=== PATIENT | male | born 1950 | race Caucasian/White ===

== ENCOUNTER 2018-05-16 17:41 | Observation (INO) ==
[2018-05-16] MEDS ORDERED: Sod Chloride 0.9% Inj 1,000 ML IV.SIG ONE (22:32)
[2018-05-16] MEDS ORDERED: Morphine Inj 4 MG/ML Vial IV.PUSH ONE (22:32)
--- NOTE | 2018-05-16 22:36 | ED ---
HPI General Chief Complaint: Nausea/Vomiting/Diarrhea Stated Complaint: vomitting Time Seen by Provider: 05/16/18 22:41 Source: patient, family and RN notes reviewed Mode of arrival: ambulatory Limitations: no limitations History of Present Illness HPI narrative: 67-year-old male presents to the emergency department for evaluation nausea, vomiting, abdominal pain. Patient states the abdominal pain started 4 days ago. He states it started as cramping in the right upper quadrant and has now painful throughout the abdomen. Family at bedside states he has been vomiting continuously throughout the day. He has vomited 8 times in the waiting room. He denies any fevers. No chest pain or shortness of breath. He has history of lithotripsy in the past. His family states that he has had this several times in the past, but has never been diagnosed with any issues. No abdominal surgeries. His history of diabetes and hypertension. No other symptoms or complaints. Moderate severity. MD complaint: abdominal pain Onset (ago): day(s) (4) Pain Consistency: constant Location: diffuse Severity: moderate Severity scale (1-10): 8 Quality: cramping Radiation: none Migration to: no migration Relieving factors: nothing Exacerbating factors: vomiting Associated symptoms: nausea and vomiting Related Data Home Medications Medication Instructions Recorded Confirmed lisinopril 20 mg PO DAILY 05/16/18 05/16/18 metformin [Glucophage] 500 mg PO BID 05/16/18 05/16/18 rosuvastatin [Crestor] 20 mg PO DAILY 05/16/18 05/16/18 Allergies Allergy/AdvReac Type Severity Reaction Status Date / Time No Known Allergies Allergy Unverified 05/16/18 22:32 Review of Systems ROS: all other systems reviewed are negative PMFSH Medical History Medical History Diabetes (Acute) Hyperlipidemia (Acute) Hypertension (Acute) Family History Family History Other Family history normal Social History Social History Substance History: No History of Abuse Second Hand Smoke Exposure: Yes Smoking Status: Light tobacco smoker Tobacco Type: Cigarettes How Often Do You Have a Drink Containing Alcohol: Never Recent Travel in [facility] within the Last 8 Weeks: No Recent Out of Country Travel within the Last 8 Weeks: No Exam Narrative Exam Narrative: GENERAL: Well-nourished, well-developed male patient, afebrile SKIN: Focused skin assessment warm/dry. HEAD: Normocephalic. Atraumatic EYES: No scleral icterus. No injection or drainage. NECK: Supple, trachea midline. No JVD or lymphadenopathy. CARDIOVASCULAR: Regular rate and rhythm without murmurs, gallops, or rubs. RESPIRATORY: Breath sounds equal bilaterally. No accessory muscle use. Lung sounds are clear to auscultation GASTROINTESTINAL: Abdomen soft and nondistended. He has diffuse tenderness to palpation throughout. MUSCULOSKELETAL: No cyanosis, or edema. BACK: Nontender without obvious deformity. No CVA tenderness. Course Initial Documented Vital Signs Temperature 98.5 F 05/16/18 17:51 Pulse Rate 92 H 05/16/18 17:51 Respiratory Rate 18 05/16/18 17:51 Blood Pressure 124/60 05/16/18 17:51 Pulse Oximetry 96 05/16/18 17:51 Last Documented Vital Signs Temperature 97.7 F 05/18/18 03:51 Pulse Rate 46 L 05/18/18 03:51 Respiratory Rate 18 05/18/18 03:51 Blood Pressure 111/61 05/18/18 03:51 Pulse Oximetry 92 L 05/18/18 03:51 Medical Decision Making [facility] Narrative Medical decision making narrative: 67 year old male presents to the emergency department for vomiting and diffuse abdominal pain. IV access is obtained. EKG , CBC, CMP, Lipase, PTT, PT/INR, UA are ordered and pending. Patient is given NS 1 L IV bolus, Zofran 4 mg IV, morphine 4 mg IV. My attending physician, Dr. Mccord, will resume care and disposition of patient. Medical Screen Exam Complete: Yes Emergency Medical Condition: Yes Differential Diagnosis Differential Diagnosis: pancreatitis vs. cholecysitis vs. diverticultis vs. UTI vs. pyelonephritis vs. nephrolitihiasis Lab Data Lab results reviewed: Yes I reviewed the patient's lab results. Result diagrams: 05/18/18 06:10 05/16/18 22:35 Lab Results 05/16/18 05/16/18 05/16/18 Range/Units 22:35 22:35 22:35 WBC 14.6 H (4.0-11.0) th/mm3 RBC 5.28 (4.50-5.90) mil/mm3 Hgb 15.9 (13.0-17.0) gm/dL Hct 47.4 (39.0-51.0) % MCV 89.7 (80.0-100.0) fL MCH 30.1 (27.0-34.0) pg MCHC 33.6 (32.0-36.0) % RDW 13.6 (11.6-17.2) % Plt Count 409 (150-450) th/mm3 MPV 8.5 (7.0-11.0) fL Neut % (Auto) 78.0 H (16.0-70.0) % Lymph % (Auto) 14.3 (9.0-44.0) % [place] % (Auto) 6.5 (0.0-8.0) % Eos % (Auto) 0.5 (0.0-4.0) % Baso % (Auto) 0.7 (0.0-2.0) % Neut # (Auto) 11.4 H (1.8-7.7) th/mm3 Lymph # (Auto) 2.1 (1.0-4.8) th/mm3 [place] # (Auto) 0.9 (0.0-0.9) th/mm3 Eos # (Auto) 0.1 (0.0-0.4) th/mm3 Baso # (Auto) 0.1 (0.0-0.2) th/mm3 WBC Differential . Differential Comment Auto diff final PT 11.3 (9.8-11.6) sec INR 1.1 Ratio APTT 28.9 (24.3-30.1) sec Sodium 142 (136-145) meq/L Potassium 3.6 (3.5-5.1) meq/L Chloride 99 (98-107) meq/L Carbon Dioxide 33.6 H (21.0-32.0) meq/L Anion Gap 9 (5-15) meq/L BUN 19 H (7-18) mg/dL Creatinine 1.33 H (0.60-1.30) mg/dL Estimated GFR 54 L (>89) mL/min POC Glucose (68-110) mg/dl Random Glucose 139 H (74-106) mg/dL Calcium 11.1 H (8.5-10.1) mg/dL Total Bilirubin 0.6 (0.2-1.0) mg/dL AST 17 (15-37) U/L ALT 20 (12-78) U/L Alkaline Phosphatase 73 (45-117) U/L Total Protein 8.8 H (6.4-8.2) g/dL Albumin 4.6 (3.4-5.0) g/dL Lipase 206 (73-393) U/L Urine Color (Yellw/Straw) Urine Clarity (Clear) Urine pH (5.0-8.5) Ur Specific [place] (1.002-1.035) Urine Protein (Neg-Trace) mg/dL Urine Glucose (UA) (Negative) mg/dL Urine Ketones (Negative) mg/dL Urine Occult Blood (Negative) Urine Nitrate (Negative) Urine Bilirubin (Negative) Urine Urobilinogen (Less than 2) mg/dL Ur Leukocyte Esterase (Negative) Urine RBC (0-3) /hpf Urine WBC (0-5) /hpf Amorphous Sediment (None) /hpf Urine Bacteria (None) /hpf Urine Mucus (Occasional) /lpf Micro UA Comment Ur Microscopic Review Urine Culture Comments Blood Type Blood Type Recheck Antibody Screen MTS Gel Crossmatch 05/17/18 05/17/18 05/17/18 Range/Units 09:22 09:25 13:29 WBC (4.0-11.0) th/mm3 RBC (4.50-5.90) mil/mm3 Hgb (13.0-17.0) gm/dL Hct (39.0-51.0) % MCV (80.0-100.0) fL MCH (27.0-34.0) pg MCHC (32.0-36.0) % RDW (11.6-17.2) % Plt Count (150-450) th/mm3 MPV (7.0-11.0) fL Neut % (Auto) (16.0-70.0) % Lymph % (Auto) (9.0-44.0) % [place] % (Auto) (0.0-8.0) % Eos % (Auto) (0.0-4.0) % Baso % (Auto) (0.0-2.0) % Neut # (Auto) (1.8-7.7) th/mm3 Lymph # (Auto) (1.0-4.8) th/mm3 [place] # (Auto) (0.0-0.9) th/mm3 Eos # (Auto) (0.0-0.4) th/mm3 Baso # (Auto) (0.0-0.2) th/mm3 WBC Differential Differential Comment PT (9.8-11.6) sec INR Ratio APTT (24.3-30.1) sec Sodium (136-145) meq/L Potassium (3.5-5.1) meq/L Chloride (98-107) meq/L Carbon Dioxide (21.0-32.0) meq/L Anion Gap (5-15) meq/L BUN (7-18) mg/dL Creatinine (0.60-1.30) mg/dL Estimated GFR (>89) mL/min POC Glucose 141 H 110 (68-110) mg/dl Random Glucose (74-106) mg/dL Calcium (8.5-10.1) mg/dL Total Bilirubin (0.2-1.0) mg/dL AST (15-37) U/L ALT (12-78) U/L Alkaline Phosphatase (45-117) U/L Total Protein (6.4-8.2) g/dL Albumin (3.4-5.0) g/dL Lipase (73-393) U/L Urine Color Yellow (Yellw/Straw) Urine Clarity Hazy H (Clear) Urine pH 7.0 (5.0-8.5) Ur Specific [place] 1.016 (1.002-1.035) Urine Protein Negative (Neg-Trace) mg/dL Urine Glucose (UA) Negative (Negative) mg/dL Urine Ketones Negative (Negative) mg/dL Urine Occult Blood Negative (Negative) Urine Nitrate Negative (Negative) Urine Bilirubin Negative (Negative) Urine Urobilinogen Less than 2 (Less than 2) mg/dL Ur Leukocyte Esterase Negative (Negative) Urine RBC 4 H (0-3) /hpf Urine WBC 5 (0-5) /hpf Amorphous Sediment Few H (None) /hpf Urine Bacteria Few H (None) /hpf Urine Mucus Few H (Occasional) /lpf Micro UA Comment Culture not ind Ur Microscopic Review Not Reportable Urine Culture Comments Culture not ind Blood Type Blood Type Recheck Antibody Screen MTS Gel Crossmatch 05/17/18 05/17/18 05/17/18 Range/Units 18:04 18:12 18:12 WBC 14.4 H (4.0-11.0) th/mm3 RBC 4.15 L (4.50-5.90) mil/mm3 Hgb 12.5 L D (13.0-17.0) gm/dL Hct 37.2 L (39.0-51.0) % MCV 89.7 (80.0-100.0) fL MCH 30.0 (27.0-34.0) pg MCHC 33.5 (32.0-36.0) % RDW 13.3 (11.6-17.2) % Plt Count 304 (150-450) th/mm3 MPV 8.5 (7.0-11.0) fL Neut % (Auto) 77.2 H (16.0-70.0) % Lymph % (Auto) 15.1 (9.0-44.0) % [place] % (Auto) 7.0 (0.0-8.0) % Eos % (Auto) 0.4 (0.0-4.0) % Baso % (Auto) 0.3 (0.0-2.0) % Neut # (Auto) 11.2 H (1.8-7.7) th/mm3 Lymph # (Auto) 2.2 (1.0-4.8) th/mm3 [place] # (Auto) 1.0 H (0.0-0.9) th/mm3 Eos # (Auto) 0.1 (0.0-0.4) th/mm3 Baso # (Auto) 0.0 (0.0-0.2) th/mm3 WBC Differential . Differential Comment Auto diff final PT (9.8-11.6) sec INR Ratio APTT (24.3-30.1) sec Sodium (136-145) meq/L Potassium (3.5-5.1) meq/L Chloride (98-107) meq/L Carbon Dioxide (21.0-32.0) meq/L Anion Gap (5-15) meq/L BUN (7-18) mg/dL Creatinine (0.60-1.30) mg/dL Estimated GFR (>89) mL/min POC Glucose 86 (68-110) mg/dl Random Glucose (74-106) mg/dL Calcium (8.5-10.1) mg/dL Total Bilirubin (0.2-1.0) mg/dL AST (15-37) U/L ALT (12-78) U/L Alkaline Phosphatase (45-117) U/L Total Protein (6.4-8.2) g/dL Albumin (3.4-5.0) g/dL Lipase (73-393) U/L Urine Color (Yellw/Straw) Urine Clarity (Clear) Urine pH (5.0-8.5) Ur Specific [place] (1.002-1.035) Urine Protein (Neg-Trace) mg/dL Urine Glucose (UA) (Negative) mg/dL Urine Ketones (Negative) mg/dL Urine Occult Blood (Negative) Urine Nitrate (Negative) Urine Bilirubin (Negative) Urine Urobilinogen (Less than 2) mg/dL Ur Leukocyte Esterase (Negative) Urine RBC (0-3) /hpf Urine WBC (0-5) /hpf Amorphous Sediment (None) /hpf Urine Bacteria (None) /hpf Urine Mucus (Occasional) /lpf Micro UA Comment Ur Microscopic Review Urine Culture Comments Blood Type A Positive Blood Type Recheck Required Antibody Screen Negative MTS Gel Crossmatch See Detail 05/17/18 05/18/18 05/18/18 Range/Units 19:43 03:06 06:10 WBC 9.7 (4.0-11.0) th/mm3 RBC 3.91 L (4.50-5.90) mil/mm3 Hgb 12.0 L (13.0-17.0) gm/dL Hct 35.8 L (39.0-51.0) % MCV 91.5 (80.0-100.0) fL MCH 30.8 (27.0-34.0) pg MCHC 33.6 (32.0-36.0) % RDW 13.7 (11.6-17.2) % Plt Count 247 (150-450) th/mm3 MPV 8.1 (7.0-11.0) fL Neut % (Auto) 65.2 (16.0-70.0) % Lymph % (Auto) 24.1 (9.0-44.0) % [place] % (Auto) 7.0 (0.0-8.0) % Eos % (Auto) 3.0 (0.0-4.0) % Baso % (Auto) 0.7 (0.0-2.0) % Neut # (Auto) 6.3 (1.8-7.7) th/mm3 Lymph # (Auto) 2.3 (1.0-4.8) th/mm3 [place] # (Auto) 0.7 (0.0-0.9) th/mm3 Eos # (Auto) 0.3 (0.0-0.4) th/mm3 Baso # (Auto) 0.1 (0.0-0.2) th/mm3 WBC Differential . Differential Comment Auto diff final PT (9.8-11.6) sec INR Ratio APTT (24.3-30.1) sec Sodium (136-145) meq/L Potassium (3.5-5.1) meq/L Chloride (98-107) meq/L Carbon Dioxide (21.0-32.0) meq/L Anion Gap (5-15) meq/L BUN (7-18) mg/dL Creatinine (0.60-1.30) mg/dL Estimated GFR (>89) mL/min POC Glucose 84 93 (68-110) mg/dl Random Glucose (74-106) mg/dL Calcium (8.5-10.1) mg/dL Total Bilirubin (0.2-1.0) mg/dL AST (15-37) U/L ALT (12-78) U/L Alkaline Phosphatase (45-117) U/L Total Protein (6.4-8.2) g/dL Albumin (3.4-5.0) g/dL Lipase (73-393) U/L Urine Color (Yellw/Straw) Urine Clarity (Clear) Urine pH (5.0-8.5) Ur Specific [place] (1.002-1.035) Urine Protein (Neg-Trace) mg/dL Urine Glucose (UA) (Negative) mg/dL Urine Ketones (Negative) mg/dL Urine Occult Blood (Negative) Urine Nitrate (Negative) Urine Bilirubin (Negative) Urine Urobilinogen (Less than 2) mg/dL Ur Leukocyte Esterase (Negative) Urine RBC (0-3) /hpf Urine WBC (0-5) /hpf Amorphous Sediment (None) /hpf Urine Bacteria (None) /hpf Urine Mucus (Occasional) /lpf Micro UA Comment Ur Microscopic Review Urine Culture Comments Blood Type Blood Type Recheck Antibody Screen MTS Gel Crossmatch Imaging Data Radiologist's impression: Abdomen/Pelvis CT 05/16/18 22:32 CONCLUSION: 1. Inflammatory stranding around the first portion of the duodenum which may represent a nonspecific duodenitis. This may be causing partial gastric outlet obstruction as the stomach is distended and fluid-filled. 2. Appendix is identified and is radiographically normal. 3. Granulomatous type calcifications in the spleen and liver. 4. Nonobstructing calculi in the left renal collecting system. Discharge Plan Discharge Disposition Patient Disposition: 30 Still Patient Physicians Team ED Provider: Fausto Mccord ED Midlevel Provider: Mady Guthrie Attending Provider: Luis Armando Hankins Other Providers: Ryan Palomares Jonathan Discharge Interventions Interventions: ED Discharge Assessment Last Done: 05/17/18 01:55 Status ED Status: Left Department Discharge Information Discharge Date/Time: 05/17/18 01:55
[2018-05-16 23:26] LABS: Baso # (Auto) 0.1 th/mm3 (0.0-0.2); Baso % (Auto) 0.7 % (0.0-2.0); Eos # (Auto) 0.1 th/mm3 (0.0-0.4); Eos % (Auto) 0.5 % (0.0-4.0); Hematocrit 47.4 % (39.0-51.0); Hemoglobin 15.9 gm/dL (13.0-17.0); Lymph # (Auto) 2.1 th/mm3 (1.0-4.8); Lymph % (Auto) 14.3 % (9.0-44.0); Mean Corpuscular HGB Conc 33.6 % (32.0-36.0); Mean Corpuscular Hemoglobin 30.1 pg (27.0-34.0); Mean Corpuscular Volume 89.7 fL (80.0-100.0); Mean Platelet Volume 8.5 fL (7.0-11.0); Mono # (Auto) 0.9 th/mm3 (0.0-0.9); Mono % (Auto) 6.5 % (0.0-8.0); Neut # (Auto) 11.4 th/mm3 (1.8-7.7); Platelet Count 409 th/mm3 (150-450); Red Blood Count 5.28 mil/mm3 (4.50-5.90); Red Cell Distribution Width 13.6 % (11.6-17.2); White Blood Count 14.6 th/mm3 (4.0-11.0)
[2018-05-16 23:41] LABS: Activated Partial Thrombo Time 28.9 sec (24.3-30.1); INR 1.1 Ratio; Prothrombin Time 11.3 sec (9.8-11.6)
[2018-05-16 23:44] LABS: Albumin 4.6 g/dL (3.4-5.0); Anion Gap 9 meq/L (5-15); Aspartate Aminotransferase 17 U/L (15-37); Blood Urea Nitrogen 19 mg/dL (7-18); Calcium 11.1 mg/dL (8.5-10.1); Carbon Dioxide 33.6 meq/L (21.0-32.0); Chloride 99 meq/L (98-107); Glomerular Filtration Rate 54 mL/min (>89); Glucose,Random 139 mg/dL (74-106); Lipase 206 U/L (73-393); Potassium 3.6 meq/L (3.5-5.1); Sodium 142 meq/L (136-145)
[2018-05-16 23:48] LABS: Alanine Aminotransferase 20 U/L (12-78); Alkaline Phosphatase 73 U/L (45-117); Total Protein 8.8 g/dL (6.4-8.2)
--- NOTE | 2018-05-17 00:07 | CT ---
EXAM DATE: 05/16/2018 11:43 PM EDT AGE/SEX: 67 years / Male INDICATIONS: Diffuse abdominal pain, nausea and vomiting. CLINICAL DATA: This is the patient's initial encounter. Patient reports that signs and symptoms have been present for 1 day and indicates a pain score of 6/10. MEDICAL/SURGICAL HISTORY: Diabetes. Hypertension. Renal calculi. None. RADIATION DOSE: 7.04 CTDI (mGy) COMPARISON: No prior exams available for comparison. TECHNIQUE: Multiple contiguous axial images were obtained through the abdomen. Images were obtained using multiple row detector helical technique. Using automated exposure control and adjustment of the mA and/or kV according to patient size, radiation dose was kept as low as reasonably achievable to o btain optimal diagnostic quality images. DICOM format image data is available electronically for rev iew and comparison. FINDINGS: Lower Lungs: Bibasilar atelectatic changes. Left lingular scarring versus atelectasis. No confluent i nfiltrate Liver: A few granulomatous type calcifications without space-occupying lesion. There is no dilation o f the biliary tree. Spleen: Scattered granulomatous type calcifications in the spleen. Pancreas: Unremarkable without mass or calcification. Kidneys: Multiple nonobstructing calcifications are seen in the midpole collecting system of the lef t kidney, the largest measuring approximately 6.2 mm in diameter Adrenal Glands: Unremarkable. Aorta: The aorta and proximal iliac vessels are grossly unremarkable without aneurysmal dilation. Bowel/Mesentery: The appendix is identified and is radiographically normal. However, there is some i nflammatory stranding around the first portion of the duodenum. In addition, the stomach is somewhat distended and fluid-filled. Abdominal Wall: Intact. Retroperitoneum: No evidence of adenopathy in the retrocrural, para-aortic, or deep pelvic regions. Bladder: Contours are smooth. Reproductive Organs: No abnormal masses or calcifications seen. Inguinal: Small bilateral inguinal hernias which only contains fat. These measure between 1.5 and 1. 9 cm Bony Structures: Bridging anterior osteophytes in the SI joints bilaterally. Otherwise intact CONCLUSION: 1. Inflammatory stranding around the first portion of the duodenum which may represent a nonspecific duodenitis. This may be causing partial gastric outlet obstruction as the stomach is distended and f luid-filled. 2. Appendix is identified and is radiographically normal. 3. Granulomatous type calcifications in the spleen and liver. 4. Nonobstructing calculi in the left renal collecting system. Electronically signed by: Alphonso Rangel MD 05/17/2018 12:06 AM EDT
[2018-05-17] MEDS ORDERED: Sod Chloride 0.9% Inj 1,000 ML IV.SIG ONE (00:16)
[2018-05-17] MEDS ORDERED: Piperacil/Tazo 3.375 GM Premix 50 ML IV.SIG ONE (00:16)
[2018-05-17] MEDS ORDERED: Bisacodyl 10 MG Supp RECTAL PRN (03:09)
[2018-05-17] MEDS ORDERED: Dextrose 50% in Water 50 ML Vial IV.PUSH PRN (03:10)
[2018-05-17] MEDS: Sod Chloride 0.9% Inj 1,000 ML IV.CONT SCH ×3 (03:51→18:18)
[2018-05-17] MEDS: Morphine Inj 4 MG/ML Vial IV.PUSH PRN ×4 (03:52→23:59)
--- NOTE | 2018-05-17 03:54 | P.HP ---
History of Present Illness Service: [facility] Primary Care Physician: Cb Anand History of Present Illness: 67-year-old male with a past medical history significant for hypertension, hyperlipidemia and diabetes mellitus presents the emergency department for evaluation of abdominal pain. Patient reports he has had a crampy abdominal pain for approximately 4 weeks. He is originally from [place] and has seen his primary care provider about this issue. He reports that all of his blood work was normal but no imaging was done. He states for the last week his abdominal pain has worsened. He awoke this morning with severe nausea followed by approximately 20 episodes of emesis. He denies any diarrhea. No fevers or chills. No chest pain or shortness of breath. No lateralizing signs/symptoms. Review of Systems All other systems reviewed negative except as stated in HPI [facility] - History History Provided By: Family Member - Medical / Surgical Hx Neg / Unobtainable Surgical History: No Previous Surgery - Medical History Medical History: Medical History (Last Updated 05/17/18 @ 03:42 by Berenice Ness MD) Diabetes Hyperlipidemia Hypertension - Family History Family History: Family History (Last Updated 05/17/18 @ 03:43 by Berenice Ness MD) Other Family history normal - Tobacco History Second Hand Smoke Exposure: Yes Tobacco Use In Past 30 Days: Yes Smoking Status: Light tobacco smoker Tobacco Type: Cigarettes - Alcohol History How Often Do You Have a Drink Containing Alcohol: Never - Substance Use History Substance History: No History of Abuse - Travel History Recent Travel in the [facility] Within the Last 8 Weeks: No Recent Travel Out of the Country Within the Last 8 Weeks: No - Immunization History Tetanus Immunization: Unsure Hx Influenza Vaccine This Season: No Medications and Allergies Active Medications: Active Medications Al Hydroxide/Mg Hydroxide (Milk Of Elbert Liq) 30 ml PO Q12H PRN PRN Reason: Mild Constipation Atorvastatin Calcium (Lipitor) 40 mg PO DAILY KOREY Bisacodyl (Dulcolax Supp) 10 mg RECTAL DAILY PRN PRN Reason: SEVERE CONSITIPATION Dextrose (D50w Vial) 50 ml IV.PUSH UNSCH PRN PRN Reason: PER HYPOGLYCEMIA PROTOCOL Glucagon (Glucagon Inj) 1 mg OTHER PRN PRN PRN Reason: for Hypoglycemia Protocol Heparin Sodium (Porcine) (Heparin Inj) 5,000 units SQ Q8H KOREY Sodium Chloride (Ns Inj) 1,000 mls @ 150 mls/hr IV.CONT .Q6H40M [facility] Insulin Aspart (Novolog Insulin Correctional Sugar Inj) 0 unit SQ ACHS AND 3AM KOREY; Protocol Lactulose (Lactulose Liq) 30 ml PO DAILY PRN PRN Reason: SEVERE CONSITIPATION Lisinopril (Prinivil) 20 mg PO DAILY [facility] Morphine Sulfate (Morphine Inj) 4 mg IV.PUSH Q4H PRN PRN Reason: pain 6-10 Ondansetron HCl (Zofran Inj) 4 mg IV.PUSH Q6H PRN PRN Reason: NAUSEA OR VOMITING Senna/Docusate Sodium (Nancy-Colace) 1 tab PO BID [facility] Sennosides (Senokot) 17.2 mg PO Q12H PRN PRN Reason: Moderate Constipation Sodium Chloride (Ns Flush) 2 ml IV.FLUSH BID [facility] Sodium Chloride (Ns Flush) 2 ml IV.FLUSH PRN PRN PRN Reason: FLUSH AFTER USING IV ACCESS Allergies Allergy/AdvReac Type Severity Reaction Status Date / Time No Known Allergies Allergy Unverified 05/16/18 22:32 Home Medications Medication Instructions Recorded Confirmed Type lisinopril 20 mg PO DAILY 05/16/18 05/16/18 History metformin [Glucophage] 500 mg PO BID 05/16/18 05/16/18 History rosuvastatin [Crestor] 20 mg PO DAILY 05/16/18 05/16/18 History Exam Vital signs: Vital Signs 05/16/18 17:51 05/16/18 22:32 05/17/18 01:44 Temperature 98.5 F Pulse Rate 92 H 53 L Respiratory Rate 18 16 Blood Pressure 124/60 118/67 Pulse Oximetry 96 98 98 05/17/18 03:09 Temperature 98.2 F Pulse Rate 57 L Respiratory Rate 22 Blood Pressure 115/55 L Pulse Oximetry 92 L Intake & Output 05/16/18 05/16/18 05/17/18 06:59 18:59 06:59 Intake Total 1000 / 1000 Balance 1000 / 1000 Weight 208.652 kg 72.8 kg Intake: IV 1000 / 1000 NS Inj 1,000 ML @ Wide Open IV. 1000 / 1000 SIG BOLUS ONE Rx#:[id number] Narrative: Gen.: No acute distress Head: Normocephalic. Atraumatic. EENT: Pupils equal round and reactive to light. Nose without drainage. Airway intact. Throat without injection. Cardiovascular: Regular rate and rhythm. No murmurs, rubs or gallops. Respiratory: Lungs clear to auscultation bilaterally. No wheezes or rhonchi. Abdomen: Soft, nontender, nondistended. No peritoneal signs. Musculoskeletal: No gross deformities. No edema. Skin: No obvious rashes or erythema. Neuro: Sensory and motor grossly intact. Cranial nerves II through XII grossly intact. Results - Labs CBC & Chem 7: 05/16/18 22:35 05/16/18 22:35 Labs: Laboratory Results - last 24 hr 05/16/18 05/16/18 05/16/18 22:35 22:35 22:35 WBC 14.6 H RBC 5.28 Hgb 15.9 Hct 47.4 MCV 89.7 MCH 30.1 MCHC 33.6 RDW 13.6 Plt Count 409 MPV 8.5 Neut % (Auto) 78.0 H Lymph % (Auto) 14.3 [place] % (Auto) 6.5 Eos % (Auto) 0.5 Baso % (Auto) 0.7 Neut # (Auto) 11.4 H Lymph # (Auto) 2.1 [place] # (Auto) 0.9 Eos # (Auto) 0.1 Baso # (Auto) 0.1 WBC Differential . Differential Comment Auto diff final PT 11.3 INR 1.1 APTT 28.9 Sodium 142 Potassium 3.6 Chloride 99 Carbon Dioxide 33.6 H Anion Gap 9 BUN 19 H Creatinine 1.33 H Estimated GFR 54 L Random Glucose 139 H Calcium 11.1 H Total Bilirubin 0.6 AST 17 ALT 20 Alkaline Phosphatase 73 Total Protein 8.8 H Albumin 4.6 Lipase 206 - Imaging Impressions Abdomen/Pelvis CT 05/16/18 22:32 CONCLUSION: 1. Inflammatory stranding around the first portion of the duodenum which may represent a nonspecific duodenitis. This may be causing partial gastric outlet obstruction as the stomach is distended and fluid-filled. 2. Appendix is identified and is radiographically normal. 3. Granulomatous type calcifications in the spleen and liver. 4. Nonobstructing calculi in the left renal collecting system. Caprini VTE Risk Assessment Caprini VTE Risk Assessment: Moderate/High Risk (score >= 2) Caprini Risk Assessment Model: Point Value = 1 Point Value = 2 Point Value = 3 Point Value = 5 Age 41-60 Minor surgery BMI > 25 kg/m2 Swollen legs Varicose veins or History of unexplained or recurrent spontaneous Oral contraceptives or hormone replacement Sepsis (< 1 month) Serious lung disease, including pneumonia (< 1 month) Abnormal pulmonary function Acute myocardial infarction Congestive heart failure (< 1 month) History of inflammatory bowel disease Medical patient at bed rest Age 61-74 Arthroscopic surgery Major open surgery (> 45 min) Laparoscopic surgery (> 45 min) Malignancy Confined to bed (> 72 hours) Immobilizing plaster cast Central venous access Age >= 75 History of VTE Family history of VTE Factor V Leiden Prothrombin [id number] Lupus anticoagulant Anticardiolipin antibodies Elevated serum homocysteine Heparin-induced thrombocytopenia Other congenital or acquired thrombophilia Stroke (< 1 month) Elective arthroplasty Hip, pelvis, or leg fracture Acute spinal cord injury (< 1 month) Prophylaxis Regimen: Total Risk Factor Score Risk Level Prophylaxis Regimen 0-1 Low Early ambulation 2 Moderate Order ONE of the following: *Sequential Compression Device (SCD) *Heparin 5000 units SQ BID 3-4 Higher Order ONE of the following medications: *Heparin 5000 units SQ TID *Enoxaparin/Lovenox 40 mg SQ daily (WT < 150 kg, CrCl > 30 mL/min) *Enoxaparin/Lovenox 30 mg SQ daily (WT < 150 kg, CrCl > 10-29 mL/min) *Enoxaparin/Lovenox 30 mg SQ BID (WT < 150 kg, CrCl > 30 mL/min) AND/OR *Sequential Compression Device (SCD) 5 or more Highest Order ONE of the following medications: *Heparin 5000 units SQ TID (Preferred with Epidurals) *Enoxaparin/Lovenox 40 mg SQ daily (WT < 150 kg, CrCl > 30 mL/min) *Enoxaparin/Lovenox 30 mg SQ daily (WT < 150 kg, CrCl > 10-29 mL/min) *Enoxaparin/Lovenox 30 mg SQ BID (WT < 150 kg, CrCl > 30 mL/min) AND *Sequential Compression Device (SCD) Assessment and Plan - Plan Assessment/plan: 1. Abdominal pain CT of the abdomen/pelvis significant for inflammatory stranding around the first portion of the duodenum, possibly duodenitis. There is a possible partial gastric outlet obstruction with a distended/fluid-filled stomach Bowel rest N.p.o. IV fluids Morphine for pain 2. Diabetes mellitus Holding home antihyperglycemic's Sliding-scale insulin Monitor blood glucose 3. Hypertension/hyperlipidemia Continue home medication FEN N.p.o. Electrolytes: Monitor and replete as needed NS at 1 50 cc/hour Heparin
[2018-05-17] MEDS ORDERED: Heparin - SQ 10,000 UNITS/ML Vial SQ SCH (06:00)
[2018-05-17] MEDS: Lisinopril 20 MG Tablet PO SCH (08:04)
[2018-05-17] MEDS: Senna/Docusate Sodium 8.6/50 MG Tablet PO SCH ×2 (08:05→20:35)
--- NOTE | 2018-05-17 09:46 | P.PN ---
Subjective Interval history: patient does not give good history, hard of hearin awake and alert, appears in no distress " I dont' know, I guess" inconsistent "still painful" , d/w staff nurse- had water and 30 mins after - vomited fluids states abdominal pain on and off for 1 year beside having hiccups- denies any reflux states usually consitpation- BM q 3-4 days main complain is having right upper quadrant pain- "it's there" Physical Exam Vital signs: Vital Signs 05/16/18 17:51 05/16/18 22:32 05/17/18 01:44 Temperature 98.5 F Pulse Rate 92 H 53 L Respiratory Rate 18 16 Blood Pressure 124/60 118/67 Pulse Oximetry 96 98 98 05/17/18 03:09 05/17/18 03:55 05/17/18 07:37 Temperature 98.2 F 98.1 F Pulse Rate 57 L 60 Respiratory Rate 22 16 16 Blood Pressure 115/55 L 163/72 H Pulse Oximetry 92 L 94 L Intake & Output 05/16/18 05/17/18 05/17/18 18:59 06:59 18:59 Intake Total 2049 Balance 2049 Weight 208.652 kg 72.8 kg Intake: IV 2049 Zosyn 3.375 GM Premix 50 ML @ 50 / 50 100 mls/hr IV.SIG ONCE ONE Rx#: [id number] NS Inj 1,000 ML @ Wide Open IV. 1999 SIG BOLUS ONE Rx#:[id number] Other: # Voids 0 Narrative: awake and alert, no acute distress anicteric no nuchal rigidity lungs- no rales regular rhythm abdomens- soft, + bowel sounds, no guarding or rigidity. + tenderness on deep palpation of right upper epigastric and midly tender epigastric area, no rebound extrmeities no edema Results - Labs CBC & Chem 7: 05/16/18 22:35 05/16/18 22:35 Laboratory Results - last 24 hr 05/16/18 05/16/18 05/16/18 22:35 22:35 22:35 WBC 14.6 H RBC 5.28 Hgb 15.9 Hct 47.4 MCV 89.7 MCH 30.1 MCHC 33.6 RDW 13.6 Plt Count 409 MPV 8.5 Neut % (Auto) 78.0 H Lymph % (Auto) 14.3 [place] % (Auto) 6.5 Eos % (Auto) 0.5 Baso % (Auto) 0.7 Neut # (Auto) 11.4 H Lymph # (Auto) 2.1 [place] # (Auto) 0.9 Eos # (Auto) 0.1 Baso # (Auto) 0.1 WBC Differential . Differential Comment Auto diff final PT 11.3 INR 1.1 APTT 28.9 Sodium 142 Potassium 3.6 Chloride 99 Carbon Dioxide 33.6 H Anion Gap 9 BUN 19 H Creatinine 1.33 H Estimated GFR 54 L POC Glucose Random Glucose 139 H Calcium 11.1 H Total Bilirubin 0.6 AST 17 ALT 20 Alkaline Phosphatase 73 Total Protein 8.8 H Albumin 4.6 Lipase 206 05/17/18 09:22 WBC RBC Hgb Hct MCV MCH MCHC RDW Plt Count MPV Neut % (Auto) Lymph % (Auto) [place] % (Auto) Eos % (Auto) Baso % (Auto) Neut # (Auto) Lymph # (Auto) [place] # (Auto) Eos # (Auto) Baso # (Auto) WBC Differential Differential Comment PT INR APTT Sodium Potassium Chloride Carbon Dioxide Anion Gap BUN Creatinine Estimated GFR POC Glucose 141 H Random Glucose Calcium Total Bilirubin AST ALT Alkaline Phosphatase Total Protein Albumin Lipase - Imaging Impressions Abdomen/Pelvis CT 05/16/18 22:32 CONCLUSION: 1. Inflammatory stranding around the first portion of the duodenum which may represent a nonspecific duodenitis. This may be causing partial gastric outlet obstruction as the stomach is distended and fluid-filled. 2. Appendix is identified and is radiographically normal. 3. Granulomatous type calcifications in the spleen and liver. 4. Nonobstructing calculi in the left renal collecting system. Assessment and Plan - Plan 67 years old abdominal pain on and off, nausea and vomiting UPper GIB Partial bowel obstruction Duodenitis - patient denies any NSAIds use -CT of the abdomen/pelvis significant for inflammatory stranding around the first portion of the duodenum, possibly duodenitis. There is a possible partial gastric outlet obstruction with a distended/fluid-filled stomach - but on on exam- belly not distended, soft. - no guarding or rigidity - Bowel rest - N.p.o. - IV fluids - Morphine for pain, Zofran prn for nause - GI consult. - NGT place- large amount of coffee ground fluid . check H and H - start PPI IV Diabetes mellitus Holding home antihyperglycemic's Sliding-scale insulin Monitor blood glucose Hypertension/hyperlipidemia Continue home medication FEN keep N.p.o. Electrolytes: Monitor and replete as needed NS at 100 cc/hour Heparin- hold - will need scope, GIB TEDs/SCDs ADD- 11 am came in- gave history - persistent vomiting since last evening- bilious vomiting - no previous abdominal surgeries per on and off nausea vomiting in the past 6 months- no scopes done - was just prescribed anti nausea pills each time which would help for 1 week then recurs - no work up done - as OP on metformin started vomiting again at bedside - 100 cc bilious insert NGT consult General surgery as well 1 pm- NGT place - PPI IV ordered earlier - coffee ground 500 cc out and draining - get a stat CBC - type and x 2 ynits RBC standby
[2018-05-17] MEDS ORDERED: Pantoprazole Inj 40 MG Vial IV.PUSH SCH (10:00)
[2018-05-17 10:02] LABS: Amorphous Sediment,Urine Few /hpf; Bilirubin,Urine Negative (Negative); Clarity,Urine Hazy (Clear); Color,Urine Yellow (Yellw/Straw); Glucose,Urine (UA) Negative (Negative); Leukocyte Esterase,Urine Negative (Negative); Mucus,Urine Few /lpf (Occasional); Nitrite,Urine Negative (Negative); Specific Gravity,Urine 1.016 (1.002-1.035)
[2018-05-17 10:03] LABS: Bacteria,Urine Few /hpf
[2018-05-17] MEDS: Insulin NovoLOG Aspart Correctional Sugar Inj SQ SCH ×4 (10:50→20:35)
[2018-05-17 19:16] LABS: Baso % (Auto) 0.3 % (0.0-2.0); Eos # (Auto) 0.1 th/mm3 (0.0-0.4); Eos % (Auto) 0.4 % (0.0-4.0); Hematocrit 37.2 % (39.0-51.0); Hemoglobin 12.5 gm/dL (13.0-17.0); Lymph # (Auto) 2.2 th/mm3 (1.0-4.8); Lymph % (Auto) 15.1 % (9.0-44.0); Mean Corpuscular HGB Conc 33.5 % (32.0-36.0); Mean Corpuscular Volume 89.7 fL (80.0-100.0); Mean Platelet Volume 8.5 fL (7.0-11.0); Neut # (Auto) 11.2 th/mm3 (1.8-7.7); Neut % (Auto) 77.2 % (16.0-70.0); Platelet Count 304 th/mm3 (150-450); Red Blood Count 4.15 mil/mm3 (4.50-5.90); Red Cell Distribution Width 13.3 % (11.6-17.2); White Blood Count 14.4 th/mm3 (4.0-11.0)
--- NOTE | 2018-05-17 20:51 | P.CONGS ---
[facility] Gen Surgery Consult Note Consult date: 05/17/18 Narrative: 67 yo M with vomiting starting yesterday which once was blood tinged. He has had RUQ and epigastric pain 1 year worse in the last month. He has had similar episodes as he has having now about 4 times this year. 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 He describes the pain as a gnawing type of pain and actually says it had primarily been in the right upper abdomen. No previous abdominal surgeries. He was noted to have leukocytosis and CT of the abdomen and pelvis shows duodenitis with gastric outlet obstruction. He is apparently hard of hearing and his family assists with the history. Review of Systems All other systems reviewed negative except as stated in [facility] - History History Provided By: Family Member - Medical History Medical History: Medical History (Last Updated 05/17/18 @ 03:42 by Berenice Ness MD) Diabetes Hyperlipidemia Hypertension - Family History Family History: Family History (Last Updated 05/17/18 @ 03:43 by Berenice Ness MD) Other Family history normal - Tobacco History Second Hand Smoke Exposure: Yes Tobacco Use In Past 30 Days: Yes Smoking Status: Light tobacco smoker Tobacco Type: Cigarettes - Alcohol History How Often Do You Have a Drink Containing Alcohol: Never - Substance Use History Substance History: No History of Abuse - Travel History Recent Travel in the [place] Within the Last 8 Weeks: No Recent Travel Out of the Country Within the Last 8 Weeks: No - Immunization History Tetanus Immunization: Unsure Hx Influenza Vaccine This Season: No Medications and Allergies Active Medications: Active Medications Al Hydroxide/Mg Hydroxide (Milk Of Elbert Garcia) 30 ml PO Q12H PRN PRN Reason: Mild Constipation Atorvastatin Calcium (Lipitor) 40 mg PO DAILY [facility] Last Admin: 05/17/18 08:04 Dose: 40 mg Bisacodyl (Dulcolax Supp) 10 mg RECTAL DAILY PRN PRN Reason: SEVERE CONSITIPATION Dextrose (D50w Vial) 50 ml IV.PUSH UNSCH PRN PRN Reason: PER HYPOGLYCEMIA PROTOCOL Glucagon (Glucagon Inj) 1 mg OTHER PRN PRN PRN Reason: for Hypoglycemia Protocol Sodium Chloride (Ns Inj) 1,000 mls @ 150 mls/hr IV.CONT .Q6H40M [facility] Last Admin: 05/17/18 18:18 Dose: 150 mls/hr Insulin Aspart (Novolog Insulin Correctional Sugar Inj) 0 unit SQ ACHS AND 3AM [facility]; Protocol Last Admin: 05/17/18 20:35 Dose: Not Given Lactulose (Lactulose Liq) 30 ml PO DAILY PRN PRN Reason: SEVERE CONSITIPATION Lisinopril (Prinivil) 20 mg PO DAILY [facility] Last Admin: 05/17/18 08:04 Dose: 20 mg Morphine Sulfate (Morphine Inj) 4 mg IV.PUSH Q4H PRN PRN Reason: pain 6-10 Last Admin: 05/17/18 16:55 Dose: 4 mg Ondansetron HCl (Zofran Inj) 4 mg IV.PUSH Q6H PRN PRN Reason: NAUSEA OR VOMITING Last Admin: 05/17/18 11:04 Dose: 4 mg Pantoprazole Sodium (Protonix Inj) 40 mg IV.PUSH Q24H [facility] Last Admin: 05/17/18 11:05 Dose: 40 mg Senna/Docusate Sodium (Nancy-Colace) 1 tab PO BID [facility] Last Admin: 05/17/18 20:35 Dose: Not Given Sennosides (Senokot) 17.2 mg PO Q12H PRN PRN Reason: Moderate Constipation Sodium Chloride (Ns Flush) 2 ml IV.FLUSH BID [facility] Last Admin: 05/17/18 20:34 Dose: 2 ml Sodium Chloride (Ns Flush) 2 ml IV.FLUSH PRN PRN PRN Reason: FLUSH AFTER USING IV ACCESS Allergies Allergy/AdvReac Type Severity Reaction Status Date / Time No Known Allergies Allergy Unverified 05/16/18 22:32 Home Medications Medication Instructions Recorded Confirmed Type lisinopril 20 mg PO DAILY 05/16/18 05/16/18 History metformin [Glucophage] 500 mg PO BID 05/16/18 05/16/18 History rosuvastatin [Crestor] 20 mg PO DAILY 05/16/18 05/16/18 History Exam Vital signs: Vital Signs 05/16/18 22:32 05/17/18 01:44 05/17/18 03:09 Temperature 98.2 F Pulse Rate 53 L 57 L Respiratory Rate 16 22 Blood Pressure 118/67 115/55 L Pulse Oximetry 98 98 92 L 05/17/18 03:55 05/17/18 07:37 05/17/18 11:59 Temperature 98.1 F 98.2 F Pulse Rate 60 52 L Respiratory Rate 16 16 16 Blood Pressure 163/72 H 118/58 L Pulse Oximetry 94 L 91 L 05/17/18 16:00 05/17/18 19:54 Temperature 97.5 F L Pulse Rate 60 Respiratory Rate 16 Blood Pressure 105/56 L Pulse Oximetry 95 100 Intake & Output 05/17/18 05/17/18 05/18/18 06:59 18:59 06:59 Intake Total 2049 Balance 2049 Weight 72.8 kg Intake: IV 2049 NS Inj 1,000 ML @ 150 mls/hr IV 1999 .CONT .Q6H40M [facility] Rx#:[id number] Zosyn 3.375 GM Premix 50 ML @ 50 / 50 100 mls/hr IV.SIG ONCE ONE Rx#: [id number] NS Inj 1,000 ML @ Wide Open IV. 1999 SIG BOLUS ONE Rx#:[id number] Oral 0 / 0 Other: # Voids 0 Date of Last Bowel Movement 05/14/18 Narrative: GENERAL: Awake and alert. No acute distress. Cooperative. Hard of hearing. HEAD: Normocephalic. Atraumatic. EYES: Pupils equal round and reactive to light bilaterally. No scleral icterus. ENT: Moist oral mucosa. NECK: Trachea midline. CHEST: Nonlabored breathing. No respiratory distress. CARDIOVASCULAR: Regular rate and rhythm. ABDOMEN: Soft, nontender, nondistended. NGT in place to LIS. EXTREMITIES: No cyanosis or edema. SKIN: Warm, dry, nonjaundiced. Results - Labs 05/17/18 18:12 05/16/18 22:35 Abnormal lab results 05/16/18 05/16/18 05/17/18 Range/Units 22:35 22:35 09:22 WBC 14.6 H (4.0-11.0) th/mm3 RBC (4.50-5.90) mil/mm3 Hgb (13.0-17.0) gm/dL Hct (39.0-51.0) % Neut % (Auto) 78.0 H (16.0-70.0) % Neut # (Auto) 11.4 H (1.8-7.7) th/mm3 [place] # (Auto) (0.0-0.9) th/mm3 Carbon Dioxide 33.6 H (21.0-32.0) meq/L BUN 19 H (7-18) mg/dL Creatinine 1.33 H (0.60-1.30) mg/dL Estimated GFR 54 L (>89) mL/min POC Glucose 141 H (68-110) mg/dl Random Glucose 139 H (74-106) mg/dL Calcium 11.1 H (8.5-10.1) mg/dL Total Protein 8.8 H (6.4-8.2) g/dL Urine Clarity (Clear) Urine RBC (0-3) /hpf Amorphous Sediment (None) /hpf Urine Bacteria (None) /hpf Urine Mucus (Occasional) /lpf MTS Gel Crossmatch 05/17/18 05/17/18 05/17/18 Range/Units 09:25 18:12 18:12 WBC 14.4 H (4.0-11.0) th/mm3 RBC 4.15 L (4.50-5.90) mil/mm3 Hgb 12.5 L D (13.0-17.0) gm/dL Hct 37.2 L (39.0-51.0) % Neut % (Auto) 77.2 H (16.0-70.0) % Neut # (Auto) 11.2 H (1.8-7.7) th/mm3 [place] # (Auto) 1.0 H (0.0-0.9) th/mm3 Carbon Dioxide (21.0-32.0) meq/L BUN (7-18) mg/dL Creatinine (0.60-1.30) mg/dL Estimated GFR (>89) mL/min POC Glucose (68-110) mg/dl Random Glucose (74-106) mg/dL Calcium (8.5-10.1) mg/dL Total Protein (6.4-8.2) g/dL Urine Clarity Hazy H (Clear) Urine RBC 4 H (0-3) /hpf Amorphous Sediment Few H (None) /hpf Urine Bacteria Few H (None) /hpf Urine Mucus Few H (Occasional) /lpf MTS Gel Crossmatch See Detail Diabetes panel 05/16/18 Range/Units 22:35 Sodium 142 (136-145) meq/L Potassium 3.6 (3.5-5.1) meq/L Chloride 99 (98-107) meq/L Carbon Dioxide 33.6 H (21.0-32.0) meq/L BUN 19 H (7-18) mg/dL Creatinine 1.33 H (0.60-1.30) mg/dL Calcium 11.1 H (8.5-10.1) mg/dL AST 17 (15-37) U/L ALT 20 (12-78) U/L Alkaline Phosphatase 73 (45-117) U/L Total Protein 8.8 H (6.4-8.2) g/dL Albumin 4.6 (3.4-5.0) g/dL Calcium panel 05/16/18 Range/Units 22:35 Calcium 11.1 H (8.5-10.1) mg/dL Albumin 4.6 (3.4-5.0) g/dL Pituitary panel 05/16/18 Range/Units 22:35 Sodium 142 (136-145) meq/L Potassium 3.6 (3.5-5.1) meq/L Chloride 99 (98-107) meq/L Carbon Dioxide 33.6 H (21.0-32.0) meq/L BUN 19 H (7-18) mg/dL Creatinine 1.33 H (0.60-1.30) mg/dL Calcium 11.1 H (8.5-10.1) mg/dL Adrenal panel 05/16/18 Range/Units 22:35 Sodium 142 (136-145) meq/L Potassium 3.6 (3.5-5.1) meq/L Chloride 99 (98-107) meq/L Carbon Dioxide 33.6 H (21.0-32.0) meq/L BUN 19 H (7-18) mg/dL Creatinine 1.33 H (0.60-1.30) mg/dL Calcium 11.1 H (8.5-10.1) mg/dL Total Bilirubin 0.6 (0.2-1.0) mg/dL AST 17 (15-37) U/L ALT 20 (12-78) U/L Alkaline Phosphatase 73 (45-117) U/L Total Protein 8.8 H (6.4-8.2) g/dL Albumin 4.6 (3.4-5.0) g/dL All other labs normal. - Imaging CT scan - abdomen: report reviewed, image reviewed CT scan - pelvis: report reviewed, image reviewed Assessment and Plan - Assessment (1) Gastric outlet obstruction Code(s): K31.1 - Adult hypertrophic pyloric stenosis Status: Acute (2) Duodenitis Code(s): K29.80 - Duodenitis without bleeding Status: Acute - Plan It appears the patient has peptic ulcer disease causing gastric outlet obstruction. Agree with plans for endoscopy. Unlikely he would end up needing any surgical intervention. Recommend further eval and treatment by gastroenterology and will be available as needed. I changed protonix to BID.
[2018-05-17] MEDS: Pantoprazole Inj 40 MG Vial IV.PUSH SCH (22:31)
--- NOTE | 2018-05-17 23:44 | P.CONGI ---
History of Present Illness Consult date: 05/17/18 Consult reason: Nausea and vomiting Chief complaint: Gastric Outlet Obstruction; Vomitting; Duodenitis History of Present Illness: Patient is a 67-year-old gentleman with known history of diabetes which apparently had been poorly controlled in the past but lately it has been under better control who reports 4 episodes of abdominal pain that have occurred over the past year the pain is described as a cramping pain in the upper abdomen associated with nausea and vomiting he denies any hematemesis coffee-ground emesis melena or hematochezia he has lost quite a bit of weight usually each episode lasts a few days the patient lives in [place] and has had preliminary workup but has never had any endoscopy or colonoscopy to further evaluate the pain nausea and vomiting Review of Systems All other systems reviewed negative except as stated in HPI PMFSH - History History Provided By: Family Member - Medical History Medical History: Medical History (Last Updated 05/17/18 @ 03:42 by Berenice Ness MD) Diabetes Hyperlipidemia Hypertension - Family History Family History: Family History (Last Updated 05/17/18 @ 03:43 by Berenice Ness MD) Other Family history normal - Tobacco History Second Hand Smoke Exposure: Yes Tobacco Use In Past 30 Days: Yes Smoking Status: Light tobacco smoker Tobacco Type: Cigarettes - Alcohol History How Often Do You Have a Drink Containing Alcohol: Never - Substance Use History Substance History: No History of Abuse - Travel History Recent Travel in the [facility] Within the Last 8 Weeks: No Recent Travel Out of the Country Within the Last 8 Weeks: No - Immunization History Tetanus Immunization: Unsure Hx Influenza Vaccine This Season: No Medications and Allergies Active Medications: Active Medications Al Hydroxide/Mg Hydroxide (Milk Of Magnlenard Liq) 30 ml PO Q12H PRN PRN Reason: Mild Constipation Atorvastatin Calcium (Lipitor) 40 mg PO DAILY [facility] Last Admin: 05/17/18 08:04 Dose: 40 mg Bisacodyl (Dulcolax Supp) 10 mg RECTAL DAILY PRN PRN Reason: SEVERE CONSITIPATION Dextrose (D50w Vial) 50 ml IV.PUSH UNSCH PRN PRN Reason: PER HYPOGLYCEMIA PROTOCOL Glucagon (Glucagon Inj) 1 mg OTHER PRN PRN PRN Reason: for Hypoglycemia Protocol Sodium Chloride (Ns Inj) 1,000 mls @ 150 mls/hr IV.CONT .Q6H40M [facility] Last Infusion: 05/17/18 23:20 Dose: Infused Insulin Aspart (Novolog Insulin Correctional Sugar Inj) 0 unit SQ ACHS AND 3AM [facility]; Protocol Last Admin: 05/17/18 20:35 Dose: Not Given Lactulose (Lactulose Liq) 30 ml PO DAILY PRN PRN Reason: SEVERE CONSITIPATION Lisinopril (Prinivil) 20 mg PO DAILY [facility] Last Admin: 05/17/18 08:04 Dose: 20 mg Morphine Sulfate (Morphine Inj) 4 mg IV.PUSH Q4H PRN PRN Reason: pain 6-10 Last Admin: 05/17/18 16:55 Dose: 4 mg Ondansetron HCl (Zofran Inj) 4 mg IV.PUSH Q6H PRN PRN Reason: NAUSEA OR VOMITING Last Admin: 05/17/18 11:04 Dose: 4 mg Pantoprazole Sodium (Protonix Inj) 40 mg IV.PUSH Q12H [facility] Last Admin: 05/17/18 22:31 Dose: 40 mg Senna/Docusate Sodium (Nancy-Colace) 1 tab PO BID [facility] Last Admin: 05/17/18 20:35 Dose: Not Given Sennosides (Senokot) 17.2 mg PO Q12H PRN PRN Reason: Moderate Constipation Sodium Chloride (Ns Flush) 2 ml IV.FLUSH BID [facility] Last Admin: 05/17/18 20:34 Dose: 2 ml Sodium Chloride (Ns Flush) 2 ml IV.FLUSH PRN PRN PRN Reason: FLUSH AFTER USING IV ACCESS Allergies Allergy/AdvReac Type Severity Reaction Status Date / Time No Known Allergies Allergy Unverified 05/16/18 22:32 Home Medications Medication Instructions Recorded Confirmed Type lisinopril 20 mg PO DAILY 05/16/18 05/16/18 History metformin [Glucophage] 500 mg PO BID 05/16/18 05/16/18 History rosuvastatin [Crestor] 20 mg PO DAILY 05/16/18 05/16/18 History Exam Vital signs: Vital Signs 05/17/18 01:44 05/17/18 03:09 05/17/18 03:55 Temperature 98.2 F Pulse Rate 53 L 57 L Respiratory Rate 16 22 16 Blood Pressure 118/67 115/55 L Pulse Oximetry 98 92 L 05/17/18 07:37 05/17/18 11:59 05/17/18 16:00 Temperature 98.1 F 98.2 F 97.5 F L Pulse Rate 60 52 L 60 Respiratory Rate 16 16 16 Blood Pressure 163/72 H 118/58 L 105/56 L Pulse Oximetry 94 L 91 L 95 05/17/18 19:54 05/17/18 20:00 Temperature 98.1 F Pulse Rate 53 L Respiratory Rate 16 Blood Pressure 114/58 L Pulse Oximetry 100 97 Intake & Output 05/17/18 05/17/18 05/18/18 06:59 18:59 06:59 Intake Total 2049 1000 / 1000 Output Total 125 / 125 Balance 2049 875 / 875 Weight 72.8 kg Intake: IV 2049 1000 / 1000 NS Inj 1,000 ML @ 150 mls/hr IV 1999 1000 / 1000 .CONT .Q6H40M [facility] Rx#:[id number] Zosyn 3.375 GM Premix 50 ML @ 50 / 50 100 mls/hr IV.SIG ONCE ONE Rx#: [id number] NS Inj 1,000 ML @ Wide Open IV. 1999 SIG BOLUS ONE Rx#:[id number] Oral 0 / 0 Output: Urine 125 / 125 Other: # Voids 0 Date of Last Bowel Movement 05/14/18 Results - Labs CBC & Chem 7: 05/17/18 18:12 05/16/18 22:35 Labs: Laboratory Results - last 24 hr 05/16/18 05/16/18 05/17/18 22:35 22:35 09:22 WBC RBC Hgb Hct MCV MCH MCHC RDW Plt Count MPV Neut % (Auto) Lymph % (Auto) [place] % (Auto) Eos % (Auto) Baso % (Auto) Neut # (Auto) Lymph # (Auto) [place] # (Auto) Eos # (Auto) Baso # (Auto) WBC Differential Differential Comment PT 11.3 INR 1.1 APTT 28.9 Sodium 142 Potassium 3.6 Chloride 99 Carbon Dioxide 33.6 H Anion Gap 9 BUN 19 H Creatinine 1.33 H Estimated GFR 54 L POC Glucose 141 H Random Glucose 139 H Calcium 11.1 H Total Bilirubin 0.6 AST 17 ALT 20 Alkaline Phosphatase 73 Total Protein 8.8 H Albumin 4.6 Lipase 206 Urine Color Urine Clarity Urine pH Ur Specific [place] Urine Protein Urine Glucose (UA) Urine Ketones Urine Occult Blood Urine Nitrate Urine Bilirubin Urine Urobilinogen Ur Leukocyte Esterase Urine RBC Urine WBC Amorphous Sediment Urine Bacteria Urine Mucus Micro UA Comment Ur Microscopic Review Urine Culture Comments Blood Type Blood Type Recheck Antibody Screen [facility] Gel Crossmatch 05/17/18 05/17/18 05/17/18 09:25 13:29 18:04 WBC RBC Hgb Hct MCV MCH MCHC RDW Plt Count MPV Neut % (Auto) Lymph % (Auto) [place] % (Auto) Eos % (Auto) Baso % (Auto) Neut # (Auto) Lymph # (Auto) [place] # (Auto) Eos # (Auto) Baso # (Auto) WBC Differential Differential Comment PT INR APTT Sodium Potassium Chloride Carbon Dioxide Anion Gap BUN Creatinine Estimated GFR POC Glucose 110 86 Random Glucose Calcium Total Bilirubin AST ALT Alkaline Phosphatase Total Protein Albumin Lipase Urine Color Yellow Urine Clarity Hazy H Urine pH 7.0 Ur Specific [place] 1.016 Urine Protein Negative Urine Glucose (UA) Negative Urine Ketones Negative Urine Occult Blood Negative Urine Nitrate Negative Urine Bilirubin Negative Urine Urobilinogen Less than 2 Ur Leukocyte Esterase Negative Urine RBC 4 H Urine WBC 5 Amorphous Sediment Few H Urine Bacteria Few H Urine Mucus Few H Micro UA Comment Culture not ind Ur Microscopic Review Not Reportable Urine Culture Comments Culture not ind Blood Type Blood Type Recheck Antibody Screen [facility] Gel Crossmatch 05/17/18 05/17/18 05/17/18 18:12 18:12 19:43 WBC 14.4 H RBC 4.15 L Hgb 12.5 L D Hct 37.2 L MCV 89.7 MCH 30.0 MCHC 33.5 RDW 13.3 Plt Count 304 MPV 8.5 Neut % (Auto) 77.2 H Lymph % (Auto) 15.1 [place] % (Auto) 7.0 Eos % (Auto) 0.4 Baso % (Auto) 0.3 Neut # (Auto) 11.2 H Lymph # (Auto) 2.2 [place] # (Auto) 1.0 H Eos # (Auto) 0.1 Baso # (Auto) 0.0 WBC Differential . Differential Comment Auto diff final PT INR APTT Sodium Potassium Chloride Carbon Dioxide Anion Gap BUN Creatinine Estimated GFR POC Glucose 84 Random Glucose Calcium Total Bilirubin AST ALT Alkaline Phosphatase Total Protein Albumin Lipase Urine Color Urine Clarity Urine pH Ur Specific [place] Urine Protein Urine Glucose (UA) Urine Ketones Urine Occult Blood Urine Nitrate Urine Bilirubin Urine Urobilinogen Ur Leukocyte Esterase Urine RBC Urine WBC Amorphous Sediment Urine Bacteria Urine Mucus Micro UA Comment Ur Microscopic Review Urine Culture Comments Blood Type A Positive Blood Type Recheck Required Antibody Screen Negative MTS Gel Crossmatch See Detail - Imaging Impressions Abdomen/Pelvis CT 05/16/18 22:32 CONCLUSION: 1. Inflammatory stranding around the first portion of the duodenum which may represent a nonspecific duodenitis. This may be causing partial gastric outlet obstruction as the stomach is distended and fluid-filled. 2. Appendix is identified and is radiographically normal. 3. Granulomatous type calcifications in the spleen and liver. 4. Nonobstructing calculi in the left renal collecting system. Assessment and Plan - Plan Patient presenting with abdominal pain associated with nausea and vomiting Patient noted to have abnormal CT with irregularity of the duodenum and gastric distention Agree with current supportive measures including the NG tube with suction Would recommend a proton pump inhibitor Would also recommend an EGD unfortunately we could not get it done today due to congestion in the OR but this is planned for tomorrow morning Further recommendations shall depend on his hospital course
[2018-05-18] MEDS: Sod Chloride 0.9% Inj 1,000 ML IV.CONT SCH ×2 (00:23→05:01)
[2018-05-18] MEDS: Insulin NovoLOG Aspart Correctional Sugar Inj SQ SCH ×5 (03:20→20:55)
[2018-05-18 07:30] LABS: Baso # (Auto) 0.1 th/mm3 (0.0-0.2); Baso % (Auto) 0.7 % (0.0-2.0); Eos # (Auto) 0.3 th/mm3 (0.0-0.4); Hematocrit 35.8 % (39.0-51.0); Lymph # (Auto) 2.3 th/mm3 (1.0-4.8); Lymph % (Auto) 24.1 % (9.0-44.0); Mean Corpuscular HGB Conc 33.6 % (32.0-36.0); Mean Corpuscular Hemoglobin 30.8 pg (27.0-34.0); Mean Corpuscular Volume 91.5 fL (80.0-100.0); Mean Platelet Volume 8.1 fL (7.0-11.0); Mono # (Auto) 0.7 th/mm3 (0.0-0.9); Neut # (Auto) 6.3 th/mm3 (1.8-7.7); Neut % (Auto) 65.2 % (16.0-70.0); Platelet Count 247 th/mm3 (150-450); Red Blood Count 3.91 mil/mm3 (4.50-5.90); Red Cell Distribution Width 13.7 % (11.6-17.2); White Blood Count 9.7 th/mm3 (4.0-11.0)
[2018-05-18 07:57] LABS: Anion Gap 9 meq/L (5-15); Blood Urea Nitrogen 20 mg/dL (7-18); Chloride 110 meq/L (98-107); Glomerular Filtration Rate Greater Than 89 mL/min (>89); Glucose,Random 72 mg/dL (74-106); Potassium 3.5 meq/L (3.5-5.1); Sodium 145 meq/L (136-145)
[2018-05-18] MEDS: Pantoprazole Inj 40 MG Vial IV.PUSH SCH (08:17)
[2018-05-18] MEDS: Lisinopril 20 MG Tablet PO SCH (08:18)
[2018-05-18] MEDS: Senna/Docusate Sodium 8.6/50 MG Tablet PO SCH ×2 (08:19→20:55)
--- NOTE | 2018-05-18 10:40 | P.PN ---
Subjective Interval history: appears comfortable- "starving" NGT in place- drainined about 500 cc bilious fluid last 24 hours states some abdominal disocmfort- ":still there but not much" per aptient + flatus lots , no BM up and ambulating plan for scope today Physical Exam Vital signs: Vital Signs 05/17/18 11:59 05/17/18 16:00 05/17/18 19:54 Temperature 98.2 F 97.5 F L Pulse Rate 52 L 60 Respiratory Rate 16 16 Blood Pressure 118/58 L 105/56 L Pulse Oximetry 91 L 95 100 05/17/18 20:00 05/18/18 00:23 05/18/18 01:21 Temperature 98.1 F 98.2 F Pulse Rate 53 L 78 Respiratory Rate 16 16 16 Blood Pressure 114/58 L 116/64 Pulse Oximetry 97 91 L 05/18/18 03:51 05/18/18 07:57 05/18/18 08:00 Temperature 97.7 F 98.1 F Pulse Rate 46 L 45 L Respiratory Rate 18 16 Blood Pressure 111/61 115/63 Pulse Oximetry 92 L 93 L 93 L Intake & Output 05/17/18 05/18/18 05/18/18 18:59 06:59 18:59 Intake Total 1999 Output Total 2975 / 2975 Balance 1999 -975 / -975 Intake: IV 1999 NS Inj 1,000 ML @ 150 mls/hr IV 1999 .CONT .Q6H40M [facility] Rx#:[id number] Oral 0 / 0 Output: Urine 2074 / 207 Gastric Drainage 900 / 900 Left Nare 900 / 900 Other: Date of Last Bowel Movement 05/14/18 05/14/18 Narrative: awake and alert, no acute distress anicteric NGT in place- draining greenisch clear fluid no nuchal rigidity lungs- no rales regular rhythm abdomens- soft, + bowel sounds, no guarding or rigidity. + tenderness on deep palpation of right upper epigastric no rebound extrmeities no edema Results - Labs CBC & Chem 7: 05/18/18 06:10 05/18/18 06:10 Laboratory Results - last 24 hr 05/17/18 05/17/18 05/17/18 13:29 18:04 18:12 WBC 14.4 H RBC 4.15 L Hgb 12.5 L D Hct 37.2 L MCV 89.7 MCH 30.0 MCHC 33.5 RDW 13.3 Plt Count 304 MPV 8.5 Neut % (Auto) 77.2 H Lymph % (Auto) 15.1 [place] % (Auto) 7.0 Eos % (Auto) 0.4 Baso % (Auto) 0.3 Neut # (Auto) 11.2 H Lymph # (Auto) 2.2 [place] # (Auto) 1.0 H Eos # (Auto) 0.1 Baso # (Auto) 0.0 WBC Differential . Differential Comment Auto diff final Sodium Potassium Chloride Carbon Dioxide Anion Gap BUN Creatinine Estimated GFR POC Glucose 110 86 Random Glucose Calcium Blood Type Blood Type Recheck Antibody Screen MTS Gel Crossmatch 05/17/18 05/17/18 05/18/18 18:12 19:43 03:06 WBC RBC Hgb Hct MCV MCH MCHC RDW Plt Count MPV Neut % (Auto) Lymph % (Auto) [place] % (Auto) Eos % (Auto) Baso % (Auto) Neut # (Auto) Lymph # (Auto) [place] # (Auto) Eos # (Auto) Baso # (Auto) WBC Differential Differential Comment Sodium Potassium Chloride Carbon Dioxide Anion Gap BUN Creatinine Estimated GFR POC Glucose 84 93 Random Glucose Calcium Blood Type A Positive Blood Type Recheck Required Antibody Screen Negative MTS Gel Crossmatch See Detail 05/18/18 05/18/18 05/18/18 06:10 06:10 08:55 WBC 9.7 RBC 3.91 L Hgb 12.0 L Hct 35.8 L MCV 91.5 MCH 30.8 MCHC 33.6 RDW 13.7 Plt Count 247 MPV 8.1 Neut % (Auto) 65.2 Lymph % (Auto) 24.1 [place] % (Auto) 7.0 Eos % (Auto) 3.0 Baso % (Auto) 0.7 Neut # (Auto) 6.3 Lymph # (Auto) 2.3 [place] # (Auto) 0.7 Eos # (Auto) 0.3 Baso # (Auto) 0.1 WBC Differential . Differential Comment Auto diff final Sodium 145 Potassium 3.5 Chloride 110 H D Carbon Dioxide 26.0 Anion Gap 9 BUN 20 H Creatinine 0.85 Estimated GFR Greater than 89 POC Glucose 78 Random Glucose 72 L Calcium 8.0 L D Blood Type Blood Type Recheck Antibody Screen MTS Gel Crossmatch Assessment and Plan - Plan 67 years old abdominal pain on and off, nausea and vomiting UPper GIB-05/17 - NGT - bilious, no coffee ground this am- yesterday + coffee ground . H and H stable Partial bowel obstruction-- + flatus , no nausea or further vomting - continue to monitor Duodenitis - patient denies any NSAIds use -CT of the abdomen/pelvis significant for inflammatory stranding around the first portion of the duodenum, possibly duodenitis. There is a possible partial gastric outlet obstruction with a distended/fluid-filled stomach - N.p.o.- change to D5NS + KCL - 100cc/hr - IV fluids - Morphine for pain, Zofran prn for nause - GI and GS ff - on PPI IV - H and H stable - hopefully scope today if OR schedule allows- d/w GI - and start po diet- liquids after scope Diabetes mellitus Holding home antihyperglycemic's Sliding-scale insulin Monitor blood glucose Hypertension/hyperlipidemia Continue home medication FEN keep N.p.o. for now Electrolytes: Monitor and replete as needed Heparin- hold - will need scope, GIB TEDs/SCDs
[2018-05-18] MEDS ORDERED: Succinylcholine Inj 100 MG/5 ML Syringe IV.PUSH ONE (12:04)
[2018-05-18] MEDS ORDERED: Lidocaine PF 1% Inj 5 ML Syringe INFILTRATN ONE (12:04)
--- NOTE | 2018-05-18 12:33 | P.PCN ---
Date of procedure: 05/18/18 Pre-op diagnosis: Nausea and vomiting Procedure: PROCEDURE PERFORMED EGD with biopsy INDICATION FOR PROCEDURE Nausea vomiting PROCEDURE: The procedure, risks and benefits were discussed with Patient/POA and informed consent was obtained. Anesthesia sedated Patient with Diprivan. Patient was placed in the left lateral decubitus position. EGD: The Pentax videoscope was introduced through the oropharynx and advanced to the second portion of the duodenum under direct visualization. Retroflexion was performed in the stomach. FINDINGS: The esophagus there was severe distal esophageal mucosal friability with ulceration consistent with grade D severely ulcerated distal esophagitis biopsies were taken there would be a concern for possible subsequent esophageal stricture as he begins to heal The stomach there was quite a bit of erythema with friability in the antrum with a small ulceration clean base no visible vessel this is all in the prepyloric region this swelling and the inflammation certainly could be a cause for outlet obstruction hence the nausea and vomiting which probably caused the problem in the distal esophagus biopsies were taken from the antrum the rest of the stomach was grossly unremarkable just some mild patchy erythema The duodenum there was a little erythema and swelling in the duodenal bulb but the rest of the duodenum was unremarkable ESTIMATED BLOOD LOSS: Minimal SPECIMENS REMOVED: Esophageal and antral biopsies COMPLICATIONS: None IMPRESSION: Severe distal esophageal ulcerative esophagitis Antral gastritis severe with antral ulcer PLAN: Await biopsies Recommend low residue diet preferably more liquid Recommend Protonix 40 mg twice daily Recommend follow-up with GI post discharge Recommend EGD in 2 months with possible dilation of the esophagus and possibly the pylorus patient is at risk for strictures in the distal esophagus and at the pylorus Precautionary measures with reflux Anesthesia: STEFANYA Surgeon: Ryan Palomares Condition: stable Disposition: floor
[2018-05-18] MEDS ORDERED: fentaNYL Citrate Inj 100 MCG/2 ML Ampul ONE (12:41)
--- NOTE | 2018-05-18 13:14 | ECG ---
Date Performed: 05/17/2018 Time Performed: 18:51:53 PTAGE: 67 years EKG: SINUS BRADYCARDIA LEFT ANTERIOR FASCICULAR BLOCK VOLTAGE CRITERIA FOR LVH ABNORMAL ECG INTE RPRETATION BASED ON A DEFAULT AGE OF 40 YEARS NO PREVIOUS TRACING DOCTOR: Erwin Ward Interpretating Date/Time 05/18/2018 13:10:52
[2018-05-18] MEDS: Potassium Chloride Inj 30 MEQ in Dextrose 5%/NaCl 0.9% Inj 1,000 ML IV.CONT SCH ×2 (13:20→23:48)
[2018-05-19 03:34] VITALS: RESP 16
[2018-05-19] MEDS: Insulin NovoLOG Aspart Correctional Sugar Inj SQ SCH ×2 (03:39→08:13)
[2018-05-19 07:07] LABS: Hematocrit 37.6 % (39.0-51.0); Hemoglobin 12.7 gm/dL (13.0-17.0); Mean Corpuscular HGB Conc 33.7 % (32.0-36.0); Mean Corpuscular Hemoglobin 30.4 pg (27.0-34.0); Mean Corpuscular Volume 90.3 fL (80.0-100.0); Mean Platelet Volume 8.5 fL (7.0-11.0); Platelet Count 252 th/mm3 (150-450); Red Blood Count 4.16 mil/mm3 (4.50-5.90); Red Cell Distribution Width 13.4 % (11.6-17.2); White Blood Count 9.2 th/mm3 (4.0-11.0)
[2018-05-19 07:56] VITALS: BP 107/60; PULSE 53; TEMP 98.4; O2SAT 95
[2018-05-19] MEDS: Senna/Docusate Sodium 8.6/50 MG Tablet PO SCH (08:19)
[2018-05-19] MEDS: Lisinopril 20 MG Tablet PO SCH (08:19)
--- NOTE | 2018-05-19 10:11 | P.PNGI ---
Subjective Interval history: Patient is sitting up on side of the bed stating he is hungry and requesting food. Denies any acute symptoms of nausea vomiting or dyspepsia. Current hemoglobin 12.7 no obvious bleeding. <Jacqui Potter - Last Filed: 05/19/18 10:12> Physical Exam Vital signs: Vital Signs 05/18/18 12:36 05/18/18 12:59 05/18/18 16:00 Temperature 98.2 F 98.5 F Pulse Rate 56 L 56 L 50 L Respiratory Rate 17 18 16 Blood Pressure 109/57 L 123/58 L 115/54 L Pulse Oximetry 96 93 L 96 05/18/18 20:00 05/18/18 23:51 05/19/18 03:33 Temperature 98.0 F 97.8 F 98.0 F Pulse Rate 59 L 55 L 51 L Respiratory Rate 18 17 16 Blood Pressure 139/65 121/75 124/66 Pulse Oximetry 97 94 L 96 05/19/18 07:53 Temperature 98.4 F Pulse Rate 53 L Respiratory Rate 16 Blood Pressure 107/60 Pulse Oximetry 95 Intake & Output 05/18/18 05/19/18 05/19/18 18:59 06:59 18:59 Intake Total 1350 / 1350 1000 / 1000 Output Total 400 / 400 Balance 1350 / 1350 600 / 600 Intake: IV 850 / 850 1000 / 1000 KCl Inj 30 MEQ In D5W/Normal 1000 / 1000 Saline Inj 1,000 ML @ 100 mls/ hr IV.CONT .Q10H9M [facility] Rx#: [id number] NS Inj 1,000 ML @ 150 mls/hr IV 850 / 850 .CONT .Q6H40M [facility] Rx#:[id number] Anesthesia Amount 500 / 500 Output: Urine 400 / 400 Other: # Voids 1 Date of Last Bowel Movement 05/14/18 - Constitutional no acute distress, thin - Routine HEENT Exam Head: Present: normocephalic (Slim) ENT: Present: mucous membranes moist - Routine Neck Exam Present: supple - Routine Respiratory Exam Present: accessory muscle use (Even, unlabored) - Routine Cardiovascular Exam Present: S1, S2 - Routine Abdominal Exam Present: soft (No obvious abdominal pain or distention, soft bowel sounds, no epigastric) - Routine Skin Exam Present: intact - Routine Neurological Exam Present: alert <Jacqui Potter - Last Filed: 05/19/18 10:12> Vital signs: Vital Signs 05/18/18 16:00 05/18/18 20:00 05/18/18 23:51 Temperature 98.5 F 98.0 F 97.8 F Pulse Rate 50 L 59 L 55 L Respiratory Rate 16 18 17 Blood Pressure 115/54 L 139/65 121/75 Pulse Oximetry 96 97 94 L 05/19/18 03:33 05/19/18 07:53 Temperature 98.0 F 98.4 F Pulse Rate 51 L 53 L Respiratory Rate 16 16 Blood Pressure 124/66 107/60 Pulse Oximetry 96 95 Intake & Output 05/18/18 05/19/18 05/19/18 18:59 06:59 18:59 Intake Total 1350 / 1350 1000 / 1000 Output Total 400 / 400 Balance 1350 / 1350 600 / 600 Intake: IV 850 / 850 1000 / 1000 KCl Inj 30 MEQ In D5W/Normal 1000 / 1000 Saline Inj 1,000 ML @ 100 mls/ hr IV.CONT .Q10H9M [facility] Rx#: [id number] NS Inj 1,000 ML @ 150 mls/hr IV 850 / 850 .CONT .Q6H40M [facility] Rx#:[id number] Anesthesia Amount 500 / 500 Output: Urine 400 / 400 Other: # Voids 1 Date of Last Bowel Movement 05/14/18 <Kendall Peterson - Last Filed: 05/19/18 14:55> Results - Labs CBC & Chem 7: 05/19/18 05:40 05/18/18 06:10 Laboratory Results - last 24 hr 05/18/18 05/18/18 05/18/18 12:39 18:12 20:15 WBC RBC Hgb Hct MCV MCH MCHC RDW Plt Count MPV POC Glucose 76 82 116 H 05/19/18 05/19/18 05/19/18 03:33 05:40 08:05 WBC 9.2 RBC 4.16 L Hgb 12.7 L Hct 37.6 L MCV 90.3 MCH 30.4 MCHC 33.7 RDW 13.4 Plt Count 252 MPV 8.5 POC Glucose 120 H 130 H <Jacqui Potter - Last Filed: 05/19/18 10:12> - Labs CBC & Chem 7: 05/19/18 05:40 05/18/18 06:10 Laboratory Results - last 24 hr 05/18/18 05/18/18 05/19/18 18:12 20:15 03:33 WBC RBC Hgb Hct MCV MCH MCHC RDW Plt Count MPV POC Glucose 82 116 H 120 H 05/19/18 05/19/18 05:40 08:05 WBC 9.2 RBC 4.16 L Hgb 12.7 L Hct 37.6 L MCV 90.3 MCH 30.4 MCHC 33.7 RDW 13.4 Plt Count 252 MPV 8.5 POC Glucose 130 H <NicholasKendall - Last Filed: 05/19/18 14:55> Assessment and Plan - Plan Patient presenting with abdominal pain associated with nausea and vomiting Patient noted to have abnormal CT with irregularity of the duodenum and gastric distention Agree with current supportive measures including the NG tube with suction Would recommend a proton pump inhibitor Would also recommend an EGD unfortunately we could not get it done today due to congestion in the OR but this is planned for tomorrow morning Further recommendations shall depend on his hospital course 05/19/2018 patient is status post EGD on 05/18/2018 Findings include severe distal esophageal ulcerative esophagitis and antral gastritis with severe antral ulcer. Explained again to patient and his findings and pending biopsies. Patient is from [facility] and family doctor is from the family medicine [facility] office. Contact phone number for the office is [phone]. Patient is planning to return home in approximately 1 week and is planning on being here for family reasons for another 3 weeks. Discussed with Ann Marie nurse case manager about getting copies of test and follow-up biopsies. Patient is going to sign consent for to be able to receive those and he has a follow-up visit in 2-1/2 weeks with his primary care physician. Recommended patient also be followed with gastroenterology in [facility], and continue Protonix 40 mg twice a day with prescription upon DC of the hospital. Patient chief complaint is hungry this a.m. and denies any symptoms of nausea vomiting epigastric pain abdominal pain or dyspepsia. Discussed also the need for repeat EGD in 2 months. Discussed reflux precautions with patient such as monitoring late- night eating, avoid carbonated drinks, eat and chew slowly, avoid spicy foods or any aggravating foods, avoid ibuprofen or Aleve and use Tylenol only if needed. Dependent on patient's current symptoms will need follow-up as an outpatient with GI in the [facility] as well as his PCP. PLAN: Diet, increase to low residue with more liquids Await biopsies, EGD Protonix 40 mg twice daily Recommend follow-up with GI post discharge, discussed with patient and his Recommend EGD in 2 months with possible dilation of the esophagus and possibly the pylorus patient is at risk for strictures in the distal esophagus and at the pylorus Reflux precautions reviewed Patient was seen per myself and Dr. Peterson, note was written on his behalf <Jacqui Potter - Last Filed: 05/19/18 10:12> - Plan Seen and examined with HOSPICE HOME HEALTH AIDE, no bleeding. Tolerating diet. Can go home with gi fu locally. No Nsaids, dc home on protonix. Discussed with patient and family. The exam, history, and the medical decision-making described in the above note were completed with the assistance of the mid-level provider. I reviewed and agree with the findings presented. I attest that I had a [id number] encounter with the patient on the same day, and personally performed and documented my assessment and findings in the medical record. <Kendall Peterson - Last Filed: 05/19/18 14:55>
--- NOTE | 2018-05-19 11:09 | P.PNIM ---
Subjective Interval history: 67-year-old male with a past medical history significant for hypertension, hyperlipidemia and diabetes mellitus presents the emergency department for evaluation of abdominal pain. Patient reports he has had a crampy abdominal pain for approximately 4 weeks. He is originally from [place] and has seen his primary care provider about this issue. He reports that all of his blood work was normal but no imaging was done. He states for the last week his abdominal pain has worsened. He awoke this morning with severe nausea followed by approximately 20 episodes of emesis. He denies any diarrhea. No fevers or chills. No chest pain or shortness of breath. No lateralizing signs/symptoms. patient does not give good history, hard of hearin awake and alert, appears in no distress " I dont' know, I guess" inconsistent "still painful" , d/w staff nurse- had water and 30 mins after - vomited fluids states abdominal pain on and off for 1 year beside having hiccups- denies any reflux states usually consitpation- BM q 3-4 days main complain is having right upper quadrant pain- "it's there" 05-18 appears comfortable- "starving" NGT in place- drainined about 500 cc bilious fluid last 24 hours states some abdominal disocmfort- ":still there but not much" per aptient + flatus lots , no BM up and ambulating plan for scope today 05-19 PATIENT HAS BEEN CLEARED BY GI RECOMMEND STOP SMOKING DW RN AND PT AND GI AND CM AND FAMILY WANTS TO GO HOME Physical Exam Vital signs: Vital Signs 05/18/18 12:36 05/18/18 12:59 05/18/18 16:00 Temperature 98.2 F 98.5 F Pulse Rate 56 L 56 L 50 L Respiratory Rate 17 18 16 Blood Pressure 109/57 L 123/58 L 115/54 L Pulse Oximetry 96 93 L 96 05/18/18 20:00 05/18/18 23:51 05/19/18 03:33 Temperature 98.0 F 97.8 F 98.0 F Pulse Rate 59 L 55 L 51 L Respiratory Rate 18 17 16 Blood Pressure 139/65 121/75 124/66 Pulse Oximetry 97 94 L 96 05/19/18 07:53 Temperature 98.4 F Pulse Rate 53 L Respiratory Rate 16 Blood Pressure 107/60 Pulse Oximetry 95 Intake & Output 05/18/18 05/19/18 05/19/18 18:59 06:59 18:59 Intake Total 1350 / 1350 1000 / 1000 Output Total 400 / 400 Balance 1350 / 1350 600 / 600 Intake: IV 850 / 850 1000 / 1000 KCl Inj 30 MEQ In D5W/Normal 1000 / 1000 Saline Inj 1,000 ML @ 100 mls/ hr IV.CONT .Q10H9M [facility] Rx#: [id number] NS Inj 1,000 ML @ 150 mls/hr IV 850 / 850 .CONT .Q6H40M [facility] Rx#:[id number] Anesthesia Amount 500 / 500 Output: Urine 400 / 400 Other: # Voids 1 Date of Last Bowel Movement 05/14/18 Narrative: GENERAL: Awake alert and oriented 3 talkative and cooperative SKIN: Warm and dry. HEAD: Atraumatic. Normocephalic. EYES: Pupils equal and round. No scleral icterus. No injection or drainage. EOMI ENT: No nasal bleeding or discharge. Mucous membranes pink and moist. Tongue is midline NECK: Trachea midline. No JVD. Supple CARDIOVASCULAR: Regular rate and rhythm. S1-S2 no S3 or S4 RESPIRATORY: No accessory muscle use. Clear to auscultation. Breath sounds equal bilaterally. GASTROINTESTINAL: Abdomen soft, non-tender, nondistended. Hepatic and splenic margins not palpable. MUSCULOSKELETAL: Extremities without clubbing, cyanosis, or edema. No obvious deformities. NEUROLOGICAL: Awake and alert. No obvious cranial nerve deficits. Motor grossly within normal limits. Five out of 5 muscle strength in the arms and legs. Normal speech. PSYCHIATRIC: Appropriate mood and affect; insight and judgment normal. Results - Labs CBC & Chem 7: 05/19/18 05:40 05/18/18 06:10 Laboratory Results - last 24 hr 05/18/18 05/18/18 05/18/18 12:39 18:12 20:15 WBC RBC Hgb Hct MCV MCH MCHC RDW Plt Count MPV POC Glucose 76 82 116 H 05/19/18 05/19/18 05/19/18 03:33 05:40 08:05 WBC 9.2 RBC 4.16 L Hgb 12.7 L Hct 37.6 L MCV 90.3 MCH 30.4 MCHC 33.7 RDW 13.4 Plt Count 252 MPV 8.5 POC Glucose 120 H 130 H - Imaging Abdomen/Pelvis CT 05/16/18 22:32 CONCLUSION: 1. Inflammatory stranding around the first portion of the duodenum which may represent a nonspecific duodenitis. This may be causing partial gastric outlet obstruction as the stomach is distended and fluid-filled. 2. Appendix is identified and is radiographically normal. 3. Granulomatous type calcifications in the spleen and liver. 4. Nonobstructing calculi in the left renal collecting system. - Procedures Date of procedure: 05/18/18 Pre-op diagnosis: Nausea and vomiting Procedure: PROCEDURE PERFORMED EGD with biopsy INDICATION FOR PROCEDURE Nausea vomiting PROCEDURE: The procedure, risks and benefits were discussed with Patient/POA and informed consent was obtained. Anesthesia sedated Patient with Diprivan. Patient was placed in the left lateral decubitus position. EGD: The Pentax videoscope was introduced through the oropharynx and advanced to the second portion of the duodenum under direct visualization. Retroflexion was performed in the stomach. FINDINGS: The esophagus there was severe distal esophageal mucosal friability with ulceration consistent with grade D severely ulcerated distal esophagitis biopsies were taken there would be a concern for possible subsequent esophageal stricture as he begins to heal The stomach there was quite a bit of erythema with friability in the antrum with a small ulceration clean base no visible vessel this is all in the prepyloric region this swelling and the inflammation certainly could be a cause for outlet obstruction hence the nausea and vomiting which probably caused the problem in the distal esophagus biopsies were taken from the antrum the rest of the stomach was grossly unremarkable just some mild patchy erythema The duodenum there was a little erythema and swelling in the duodenal bulb but the rest of the duodenum was unremarkable ESTIMATED BLOOD LOSS: Minimal SPECIMENS REMOVED: Esophageal and antral biopsies COMPLICATIONS: None IMPRESSION: Severe distal esophageal ulcerative esophagitis Antral gastritis severe with antral ulcer PLAN: Await biopsies Recommend low residue diet preferably more liquid Recommend Protonix 40 mg twice daily Recommend follow-up with GI post discharge Recommend EGD in 2 months with possible dilation of the esophagus and possibly the pylorus patient is at risk for strictures in the distal esophagus and at the pylorus Precautionary measures with reflux Anesthesia: GETA Surgeon: Ryan Palomares Condition: stable Disposition: floor Documented By: Ryan Palomares MD Assessment and Plan - Plan 67 years old abdominal pain on and off, nausea and vomiting UPper GIB-05/17 - NGT - bilious, no coffee ground this am- yesterday + coffee ground . H and H stable Partial bowel obstruction-- + flatus , no nausea or further vomiting - continue to monitor Duodenitis - patient denies any NSAIds use -CT of the abdomen/pelvis significant for inflammatory stranding around the first portion of the duodenum, possibly duodenitis. There is a possible partial gastric outlet obstruction with a distended/fluid-filled stomach - GI and GS ff - on PPI IV - H and H stable Status post EGD on May 18 Diabetes mellitus Holding home antihyperglycemic's Sliding-scale insulin Monitor blood glucose resume home medications Hypertension/hyperlipidemia Continue home medication Tobacco abuse smoking cessation recommended DC to home today Code Status: Full code Discussed Condition With: RN and patient and case management and gastroenterology and family Discharge Planning: DC to home today
--- NOTE | 2018-05-19 11:17 | P.DS ---
Date of admission: 05/17/18 00:45 Primary care physician: Cb Anand Attending physician on discharge: Richard Rogers Anticipated date of discharge: 05/19/18 Brief History from admission: 67-year-old male with a past medical history significant for hypertension, hyperlipidemia and diabetes mellitus presents the emergency department for evaluation of abdominal pain. Patient reports he has had a crampy abdominal pain for approximately 4 weeks. He is originally from [place] and has seen his primary care provider about this issue. He reports that all of his blood work was normal but no imaging was done. He states for the last week his abdominal pain has worsened. He awoke this morning with severe nausea followed by approximately 20 episodes of emesis. He denies any diarrhea. No fevers or chills. No chest pain or shortness of breath. No lateralizing signs/symptoms. DS: Diagnosis - Discharge Diagnosis (1) Tobacco abuse Status: Chronic (2) Hypertension Status: Chronic (3) Hyperlipidemia Status: Chronic (4) Diabetes mellitus Status: Chronic (5) Duodenitis Status: Acute (6) Gastric outlet obstruction Status: Acute DS: Medications - Discharge Medications Prescriptions: lisinopril 20 mg PO DAILY #30 tab metformin [Glucophage] 500 mg PO BID #60 tab nicotine [Nicoderm CQ] 1 patch TRANSDERMAL DAILY #30 ea pantoprazole 40 mg PO BID #60 tab rosuvastatin [Crestor] 20 mg PO DAILY #30 tab DS: Summary Hospital Course: 67-year-old male with a past medical history significant for hypertension, hyperlipidemia and diabetes mellitus presents the emergency department for evaluation of abdominal pain. Patient reports he has had a crampy abdominal pain for approximately 4 weeks. He is originally from [place] and has seen his primary care provider about this issue. He reports that all of his blood work was normal but no imaging was done. He states for the last week his abdominal pain has worsened. He awoke this morning with severe nausea followed by approximately 20 episodes of emesis. He denies any diarrhea. No fevers or chills. No chest pain or shortness of breath. No lateralizing signs/symptoms. patient does not give good history, hard of hearin awake and alert, appears in no distress " I dont' know, I guess" inconsistent "still painful" , d/w staff nurse- had water and 30 mins after - vomited fluids states abdominal pain on and off for 1 year beside having hiccups- denies any reflux states usually consitpation- BM q 3-4 days main complain is having right upper quadrant pain- "it's there" 05-18 appears comfortable- "starving" NGT in place- drainined about 500 cc bilious fluid last 24 hours states some abdominal disocmfort- ":still there but not much" per aptient + flatus lots , no BM up and ambulating plan for scope today 05-19 PATIENT HAS BEEN CLEARED BY GI RECOMMEND STOP SMOKING DW RN AND PT AND GI AND CM AND FAMILY WANTS TO GO HOME HAD EGD YESTERDAY SEE REPORT - Time Spent with Patient Total time spent providing and/or coordinating discharge services: Greater than 30 minutes - Quality: VTE Deep Vein Thrombosis/Pulmonary Embolism Present on Admission: No Exam Vital signs: Vital Signs 05/18/18 12:36 05/18/18 12:59 05/18/18 16:00 Temperature 98.2 F 98.5 F Pulse Rate 56 L 56 L 50 L Respiratory Rate 17 18 16 Blood Pressure 109/57 L 123/58 L 115/54 L Pulse Oximetry 96 93 L 96 05/18/18 20:00 05/18/18 23:51 05/19/18 03:33 Temperature 98.0 F 97.8 F 98.0 F Pulse Rate 59 L 55 L 51 L Respiratory Rate 18 17 16 Blood Pressure 139/65 121/75 124/66 Pulse Oximetry 97 94 L 96 05/19/18 07:53 Temperature 98.4 F Pulse Rate 53 L Respiratory Rate 16 Blood Pressure 107/60 Pulse Oximetry 95 Intake & Output 05/18/18 05/19/18 05/19/18 18:59 06:59 18:59 Intake Total 1350 / 1350 1000 / 1000 Output Total 400 / 400 Balance 1350 / 1350 600 / 600 Intake: IV 850 / 850 1000 / 1000 KCl Inj 30 MEQ In D5W/Normal 1000 / 1000 Saline Inj 1,000 ML @ 100 mls/ hr IV.CONT .Q10H9M KOREY Rx#: [id number] NS Inj 1,000 ML @ 150 mls/hr IV 850 / 850 .CONT .Q6H40M KOREY Rx#:[id number] Anesthesia Amount 500 / 500 Output: Urine 400 / 400 Other: # Voids 1 Date of Last Bowel Movement 05/14/18 Narrative: GENERAL: Awake alert and oriented 3 talkative and cooperative SKIN: Warm and dry. HEAD: Atraumatic. Normocephalic. EYES: Pupils equal and round. No scleral icterus. No injection or drainage. EOMI ENT: No nasal bleeding or discharge. Mucous membranes pink and moist. Tongue is midline NECK: Trachea midline. No JVD. Supple CARDIOVASCULAR: Regular rate and rhythm. S1-S2 no S3 or S4 RESPIRATORY: No accessory muscle use. Clear to auscultation. Breath sounds equal bilaterally. GASTROINTESTINAL: Abdomen soft, non-tender, nondistended. Hepatic and splenic margins not palpable. MUSCULOSKELETAL: Extremities without clubbing, cyanosis, or edema. No obvious deformities. NEUROLOGICAL: Awake and alert. No obvious cranial nerve deficits. Motor grossly within normal limits. Five out of 5 muscle strength in the arms and legs. Normal speech. PSYCHIATRIC: Appropriate mood and affect; insight and judgment normal. Results Procedures completed during hospitalization: Date of procedure: 05/18/18 Pre-op diagnosis: Nausea and vomiting Procedure: PROCEDURE PERFORMED EGD with biopsy INDICATION FOR PROCEDURE Nausea vomiting PROCEDURE: The procedure, risks and benefits were discussed with Patient/POA and informed consent was obtained. Anesthesia sedated Patient with Diprivan. Patient was placed in the left lateral decubitus position. EGD: The Pentax videoscope was introduced through the oropharynx and advanced to the second portion of the duodenum under direct visualization. Retroflexion was performed in the stomach. FINDINGS: The esophagus there was severe distal esophageal mucosal friability with ulceration consistent with grade D severely ulcerated distal esophagitis biopsies were taken there would be a concern for possible subsequent esophageal stricture as he begins to heal The stomach there was quite a bit of erythema with friability in the antrum with a small ulceration clean base no visible vessel this is all in the prepyloric region this swelling and the inflammation certainly could be a cause for outlet obstruction hence the nausea and vomiting which probably caused the problem in the distal esophagus biopsies were taken from the antrum the rest of the stomach was grossly unremarkable just some mild patchy erythema The duodenum there was a little erythema and swelling in the duodenal bulb but the rest of the duodenum was unremarkable ESTIMATED BLOOD LOSS: Minimal SPECIMENS REMOVED: Esophageal and antral biopsies COMPLICATIONS: None IMPRESSION: Severe distal esophageal ulcerative esophagitis Antral gastritis severe with antral ulcer PLAN: Await biopsies Recommend low residue diet preferably more liquid Recommend Protonix 40 mg twice daily Recommend follow-up with GI post discharge Recommend EGD in 2 months with possible dilation of the esophagus and possibly the pylorus patient is at risk for strictures in the distal esophagus and at the pylorus Precautionary measures with reflux Anesthesia: ANIYA Surgeon: Ryan Palomares Condition: stable Disposition: floor Documented By: Ryan Palomares MD Completed studies during hospitalization: Laboratory Results WBC 9.2 th/mm3 (4.0-11.0) 05/19/18 05:40 RBC 4.16 mil/mm3 (4.50-5.90) L 05/19/18 05:40 Hgb 12.7 gm/dL (13.0-17.0) L 05/19/18 05:40 Hct 37.6 % (39.0-51.0) L 05/19/18 05:40 MCV 90.3 fL (80.0-100.0) 05/19/18 05:40 MCH 30.4 pg (27.0-34.0) 05/19/18 05:40 MCHC 33.7 % (32.0-36.0) 05/19/18 05:40 RDW 13.4 % (11.6-17.2) 05/19/18 05:40 Plt Count 252 th/mm3 (150-450) 05/19/18 05:40 MPV 8.5 fL (7.0-11.0) 05/19/18 05:40 Neut % (Auto) 65.2 % (16.0-70.0) 05/18/18 06:10 Lymph % (Auto) 24.1 % (9.0-44.0) 05/18/18 06:10 [place] % (Auto) 7.0 % (0.0-8.0) 05/18/18 06:10 Eos % (Auto) 3.0 % (0.0-4.0) 05/18/18 06:10 Baso % (Auto) 0.7 % (0.0-2.0) 05/18/18 06:10 Neut # (Auto) 6.3 th/mm3 (1.8-7.7) 05/18/18 06:10 Lymph # (Auto) 2.3 th/mm3 (1.0-4.8) 05/18/18 06:10 [place] # (Auto) 0.7 th/mm3 (0.0-0.9) 05/18/18 06:10 Eos # (Auto) 0.3 th/mm3 (0.0-0.4) 05/18/18 06:10 Baso # (Auto) 0.1 th/mm3 (0.0-0.2) 05/18/18 06:10 WBC Differential . 05/18/18 06:10 Differential Comment Auto diff final 05/18/18 06:10 PT 11.3 sec (9.8-11.6) 05/16/18 22:35 INR 1.1 Ratio 05/16/18 22:35 APTT 28.9 sec (24.3-30.1) 05/16/18 22:35 Sodium 145 meq/L (136-145) 05/18/18 06:10 Potassium 3.5 meq/L (3.5-5.1) 05/18/18 06:10 Chloride 110 meq/L (98-107) H D 05/18/18 06:10 Carbon Dioxide 26.0 meq/L (21.0-32.0) 05/18/18 06:10 Anion Gap 9 meq/L (5-15) 05/18/18 06:10 BUN 20 mg/dL (7-18) H 05/18/18 06:10 Creatinine 0.85 mg/dL (0.60-1.30) 05/18/18 06:10 Estimated GFR Greater than 89 mL/min (>89) 05/18/18 06:10 POC Glucose 130 mg/dl (68-110) H 05/19/18 08:05 Random Glucose 72 mg/dL (74-106) L 05/18/18 06:10 Calcium 8.0 mg/dL (8.5-10.1) L D 05/18/18 06:10 Total Bilirubin 0.6 mg/dL (0.2-1.0) 05/16/18 22:35 AST 17 U/L (15-37) 05/16/18 22:35 ALT 20 U/L (12-78) 05/16/18 22:35 Alkaline Phosphatase 73 U/L (45-117) 05/16/18 22:35 Total Protein 8.8 g/dL (6.4-8.2) H 05/16/18 22:35 Albumin 4.6 g/dL (3.4-5.0) 05/16/18 22:35 Lipase 206 U/L (73-393) 05/16/18 22:35 Urine Color Yellow (Yellw/Straw) 05/17/18 09:25 Urine Clarity Hazy (Clear) H 05/17/18 09:25 Urine pH 7.0 (5.0-8.5) 05/17/18 09:25 Ur Specific [place] 1.016 (1.002-1.035) 05/17/18 09:25 Urine Protein Negative mg/dL (Neg-Trace) 05/17/18 09:25 Urine Glucose (UA) Negative mg/dL (Negative) 05/17/18 09:25 Urine Ketones Negative mg/dL (Negative) 05/17/18 09:25 Urine Occult Blood Negative (Negative) 05/17/18 09:25 Urine Nitrate Negative (Negative) 05/17/18 09:25 Urine Bilirubin Negative (Negative) 05/17/18 09:25 Urine Urobilinogen Less than 2 mg/dL (Less than 2) 05/17/18 09:25 Ur Leukocyte Esterase Negative (Negative) 05/17/18 09:25 Urine RBC 4 /hpf (0-3) H 05/17/18 09:25 Urine WBC 5 /hpf (0-5) 05/17/18 09:25 Amorphous Sediment Few /hpf (None) H 05/17/18 09:25 Urine Bacteria Few /hpf (None) H 05/17/18 09:25 Urine Mucus Few /lpf (Occasional) H 05/17/18 09:25 Micro UA Comment Culture not ind 05/17/18 09:25 Ur Microscopic Review Not Reportable 05/17/18 09:25 Urine Culture Comments Culture not ind 05/17/18 09:25 Blood Type A Positive 05/17/18 18:12 Blood Type Recheck Required 05/17/18 18:12 Antibody Screen Negative 05/17/18 18:12 MTS Gel Crossmatch See Detail 05/17/18 18:12 Impressions Abdomen/Pelvis CT 05/16/18 22:32 CONCLUSION: 1. Inflammatory stranding around the first portion of the duodenum which may represent a nonspecific duodenitis. This may be causing partial gastric outlet obstruction as the stomach is distended and fluid-filled. 2. Appendix is identified and is radiographically normal. 3. Granulomatous type calcifications in the spleen and liver. 4. Nonobstructing calculi in the left renal collecting system. Pending studies at discharge: Pending at discharge 05/18/18 07:36 Surgical [PTH] Routine Labs on day of discharge: Labs from last 24 hours 05/19/18 05/19/18 05/19/18 08:05 05:40 03:33 WBC 9.2 RBC 4.16 L Hgb 12.7 L Hct 37.6 L MCV 90.3 MCH 30.4 MCHC 33.7 RDW 13.4 Plt Count 252 MPV 8.5 POC Glucose 130 H 120 H 05/18/18 05/18/18 05/18/18 20:15 18:12 12:39 WBC RBC Hgb Hct MCV MCH MCHC RDW Plt Count MPV POC Glucose 116 H 82 76 - Impressions ITS Impressions Abdomen/Pelvis CT 05/16/18 22:32 CONCLUSION: 1. Inflammatory stranding around the first portion of the duodenum which may represent a nonspecific duodenitis. This may be causing partial gastric outlet obstruction as the stomach is distended and fluid-filled. 2. Appendix is identified and is radiographically normal. 3. Granulomatous type calcifications in the spleen and liver. 4. Nonobstructing calculi in the left renal collecting system. Discharge Plan - Discharge Disposition Patient Disposition: 01 Discharge Home - Discharge Condition Condition: Good - Discharge Order Discharge Orders: Discharge Order (Routine); Ordered 05/19/18 Ordered By: Richard Rogers - Discharge Details Anticipated Discharge Date: 05/19/18 Discharge Comment: DC TO HOME - Physicians Team Attending Provider: Richard Rogers Other Providers: Ryan Palomares MD ; Ranjan,MD Catalino
== END 2018-05-19 11:48 | disposition home or self-care (01) ==
LOC: NEPE 17:41 → NEDA 05-17 00:45 → INTOOBSV 05-17 00:45 → NEDA 05-17 01:55 → NEPGCP 05-17 02:58
PROVIDERS: ADMIT Hospitalist; ATTEND Hospitalist
PROC: PANENDO (2018-05-18 12:04)